=== PATIENT | male | born 1945 | race Caucasian/White ===

== ENCOUNTER 2019-05-28 00:04 | Emergency (ER) | payer MEDICARE ==
--- NOTE | 2019-05-28 00:13 | ERPHSYRPT ---
- History of Present Illness Time Seen by Provider: 05/28/19 00:05 Source: patient Exam Limitations: no limitations Physician History: Patient has been having shortness of breath for the past four days. Patient has not been seen or evaluated prior to coming into the emergency department. Patient states his symptoms are worse with him laying down immediately. Timing/Duration: day(s) (4) Activities at Onset: rest, sleep Severity of Dyspnea-Max: moderate Severity of Dyspnea-Current: none Possible Cause: occasional episodes Modifying Factors: Worsens With: lying down Associated Symptoms: intermittent, cough, No chest pain/discomfort, No edema, No fever, No insomnia, No loss of appetite, No lightheadedness, No wheezing, No weakness, No ankle swelling, No chills, No hemoptysis, No calf pain, No dizziness, No heaviness, No heart racing, No lightheadedness, No leg swelling, No muscle spasms feet, No muscle spasms hands, No painful breathing, No productive cough, No sweating, No tightness, No tingling face, No tingling hands International travel in last 2 weeks: No Allergies/Adverse Reactions: gemfibrozil Allergy (Mild, Verified 05/28/19 00:28) Home Medications: Amiodarone HCl 200 mg PO DAILY 05/28/19 [History] Aspirin 81 mg PO DAILY 05/28/19 [History] Atorvastatin Calcium 40 mg PO DAILY 05/28/19 [History] Furosemide 40 mg PO DAILY 05/28/19 [History] Sacubitril/Valsartan [Entresto 24 mg-26 mg Tablet] 1 tablet PO DAILY 05/28/19 [ History] Warfarin Sodium 5 mg [Coumadin 5 MG] 5 mg PO DAILY 05/28/19 [History] - Review of Systems Constitutional: No Fever, No Chills Eyes: No Eye Pain, No Vision Changes Ears, Nose, & Throat: No Ear Pain, No Ear Discharge, No Nose Congestion, No Nose Discharge, No Throat Pain, No Painful Swallowing Respiratory: Cough, Dyspnea Cardiac: PND, No Chest Pain, No Edema, No Syncope Abdominal/Gastrointestinal: No Abdominal Pain, No Nausea, No Vomiting, No Diarrhea, No Hematemesis, No Hematochezia, No Melena Genitourinary Symptoms: No Dysuria, No Hematuria, No Flank Pain Musculoskeletal: No Back Pain, No Neck Pain, No Myalgias Skin: No Rash Neurological: No Dizziness, No Focal Weakness, No Headache, No Sensory Changes Psychological: No Anxiety Endocrine: No Excessive Sweating Hematologic/Lymphatic: No Easy Bleeding, No Easy Bruising All Other Systems: Reviewed and Negative - Past Medical History Pertinent Past Medical History: Yes Cardiac History: Coronary Artery Disease, High Cholesterol, Myocardial Infarction ([place]) Endocrine Medical History: Diabetes Type II History: Renal Disease (chronic kidney disease since his [place] one year ago) - Past Surgical History Past Surgical History: Yes Cardiac: Internal Defibrillator, Pacemaker Other Surgical History: Tonsillectomy - Social History Smoking Status: Never smoker Alcohol Use: None Drug Use: none - Nursing Vital Signs Nursing Vital Signs: Initial Vital Signs Pulse Rate 60 05/28/19 00:05 Respiratory Rate 23 05/28/19 00:05 Blood Pressure 115/72 05/28/19 00:05 O2 Sat by Pulse Oximetry 99 05/28/19 00:05 - Physical Exam General Appearance: no apparent distress, alert Eye Exam: PERRL/EOMI, eyes nml inspection, No scleral icterus, No pale conjunctivae Ears, Nose, Throat Exam: hearing grossly normal, normal ENT inspection, normal pharynx Neck Exam: normal inspection, non-tender, supple, No Brudzinski, No meningismus , No lymphadenopathy (R), No lymphadenopathy (L) Respiratory Exam: normal breath sounds, lungs clear, airway intact, No chest tenderness, No respiratory distress, No diminished breath sounds, No accessory muscle use, No crackles/rales, No rhonchi, No wheezing, No stridor Cardiovascular/Chest Exam: normal heart sounds, regular rate/rhythm, murmur, normal peripheral pulses, No JVD Abdominal/Gastrointestinal Exam: soft, normal bowel sounds, No tenderness, No distention, No mass, No guarding, No rebound Extremity Exam: non-tender, normal range of motion, normal inspection, no calf tenderness, no pedal edema, No calf tenderness, No addie's sign Neurologic Exam: alert, oriented x 3, cooperative, industrial hygenist II-XII nml as tested, normal mood/affect, sensation nml, No motor deficits Skin Exam: normal color, warm, No dry, No jaundice, No cyanosis SpO2 Interpretation: normal O2 Delivery: Room Air - Course Nursing assessment & vital signs reviewed: Yes EKG Interpreted by Me: RATE (60), Other (Atiral and Ventricular Paced Rhythm; negative previous EKG for comparison) - Radiology Exams Chest X-ray Interpretation: Interpreted by me, Reviewed by me, No Fracture, No Pneumonia, No Infiltrates, Other (cardiomegaly, pacemaker/defibrillator, hiatal hernia) Ordered Tests: Active Orders 24 hr Category Date Time Status Research Instrumentation Technician STAT Care 05/28/19 00:06 Active EKG-ER Only STAT Care 05/28/19 00:05 Active IV Insertion STAT Care 05/28/19 00:05 Active CHEST 1 VIEW (PORTABLE) Stat Exams 05/28/19 00:06 Taken BLOOD CULTURE Stat Lab 05/28/19 00:55 Received CBC W DIFF Stat Lab 05/28/19 00:56 Completed CMP Stat Lab 05/28/19 00:56 Completed Lactic Acid Stat Lab 05/28/19 00:30 Completed MAGNESIUM Stat Lab 05/28/19 00:56 Completed NT PRO BNP Stat Lab 05/28/19 00:56 Completed PROTIME WITH INR Stat Lab 05/28/19 00:56 Completed PTT Stat Lab 05/28/19 00:56 Completed TROPONIN Q3H Lab 05/28/19 00:56 Completed TROPONIN Q3H Lab 05/28/19 03:15 Ordered TROPONIN Q3H Lab 05/28/19 06:15 Ordered TROPONIN Q3H Lab 05/28/19 09:15 Ordered TROPONIN Q3H Lab 05/28/19 12:15 Ordered UA W/RFX UR CULTURE Stat Lab 05/28/19 01:32 Completed VENOUS BLOOD GAS Stat Lab 05/28/19 00:30 Completed Peak Expiratory Flow Rate ONCE RT 05/28/19 03:06 Active Respiratory Therapy Assessment DAILY RT 05/28/19 03:06 Active Medication Summary Discontinued Medications Generic Name Dose Route Start Last Admin Trade Name Freq PRN Reason Stop Dose Admin Albuterol/Ipratropium 3 ml 05/28/19 02:37 05/28/19 03:02 Duoneb 0.5-3 Mg/3 Ml Neb IH 05/28/19 02:38 3 ml STAT ONE Administration Albuterol/Ipratropium Confirm 05/28/19 03:02 Duoneb 0.5-3 Mg/3 Ml Neb Administered 05/28/19 03:03 Dose 3 ml IH .STK-MED ONE Lab/Rad Data: Laboratory Result Diagrams 05/28/19 00:56 05/28/19 00:56 Laboratory Results 05/28/19 05/28/19 05/28/19 Range/Units 01:32 00:56 00:56 WBC (4.0-10.5) K/mm3 RBC (4.1-5.6) M/mm3 Hgb (12.5-18.0) gm/dl Hct (42-50) % MCV (78-100) fl MCH (26-32) pg MCHC (32-36) g/dl RDW (11.5-14.0) % Plt Count (150-450) K/mm3 MPV (6-9.5) fl Gran % (36.0-66.0) % Eos # (Auto) (0-0.5) Absolute Lymphs (auto) (1.0-4.6) Absolute Monos (auto) (0.0-1.3) Lymphocytes % (24.0-44.0) % Monocytes % (0.0-12.0) % Eosinophils % (0.00-5.0) % Basophils % (0.0-0.4) % Absolute Granulocytes (1.4-6.9) Basophils # (0-0.4) PT 27.1 H (8.83-12.87) SECONDS INR 2.36 (0.8-3.0) APTT 40.6 H (24.1-36.1) SECONDS pO2/FiO2 Ratio % VBG pH (7.32-7.42) VBG pCO2 at Pat Temp (42-55) mm/Hg VBG pO2 at Pat Temp (25-40) mm/Hg VBG HCO3 (22-28) meq/L VBG O2 Sat (Gema) (95-100) VBG Base Excess (-2.0-2.0) VBG Hemoglobin VBG Carboxyhemoglobin (0.0-6.9) % T HGB POC Potassium (3.5-5.1) Sodium (137-145) mmol/L Potassium (3.5-5.1) mmol/L Chloride (98-107) mmol/L Carbon Dioxide (22-30) mmol/L Anion Gap (5-15) MEQ/L BUN (9-20) mg/dL Creatinine (0.66-1.25) mg/dL Estimated GFR ML/MIN Glucose (74-106) mg/dL Lactic Acid (0.4-2.0) Calcium (8.4-10.2) mg/dL Magnesium (1.6-2.3) mg/dL Total Bilirubin (0.2-1.3) mg/dL AST (17-59) U/L ALT (0-50) U/L Alkaline Phosphatase (38-126) U/L Troponin I 0.025 (0.000-0.034) ng/mL NT-Pro-B Natriuret Pep (0-1800) pg/mL Serum Total Protein (6.3-8.2) g/dL Albumin (3.5-5.0) g/dL Urine Color YELLOW (YELLOW) Urine Appearance CLEAR (CLEAR) Urine pH 5.0 (5-6) Ur Specific Cropsey 1.010 (1.005-1.025) Urine Protein NEGATIVE (Negative) Urine Ketones NEGATIVE (NEGATIVE) Urine Blood NEGATIVE (0-5) Severino/ul Urine Nitrite NEGATIVE (NEGATIVE) Urine Bilirubin NEGATIVE (NEGATIVE) Urine Urobilinogen NEGATIVE (0-1) mg/dL Ur Leukocyte Esterase NEGATIVE (NEGATIVE) Urine WBC (Auto) NONE (0-5) /HPF Urine RBC (Auto) NONE (0-2) /HPF U Epithel Cells (Auto) NONE (FEW) /HPF Urine Bacteria (Auto) NONE (NEGATIVE) /HPF Urine Culture Reflexed NO (NO) Urine Glucose NEGATIVE (NEGATIVE) mg/dL Influenza Type A Ag (NEGATIVE) Influenza Type B Ag (NEGATIVE) RSV (PCR) (Negative) 05/28/19 05/28/19 05/28/19 Range/Units 00:56 00:56 00:55 WBC 6.1 (4.0-10.5) K/mm3 RBC 4.01 L (4.1-5.6) M/mm3 Hgb 11.9 L (12.5-18.0) gm/dl Hct 36.0 L (42-50) % MCV 89.8 (78-100) fl MCH 29.7 (26-32) pg MCHC 33.1 (32-36) g/dl RDW 14.5 H (11.5-14.0) % Plt Count 199 (150-450) K/mm3 MPV 10.2 H (6-9.5) fl Gran % 57.5 (36.0-66.0) % Eos # (Auto) 0.26 (0-0.5) Absolute Lymphs (auto) 1.63 (1.0-4.6) Absolute Monos (auto) 0.67 (0.0-1.3) Lymphocytes % 26.7 (24.0-44.0) % Monocytes % 11.0 (0.0-12.0) % Eosinophils % 4.3 (0.00-5.0) % Basophils % 0.5 (0.0-0.4) % Absolute Granulocytes 3.51 (1.4-6.9) Basophils # 0.03 (0-0.4) PT (8.83-12.87) SECONDS INR (0.8-3.0) APTT (24.1-36.1) SECONDS pO2/FiO2 Ratio % VBG pH (7.32-7.42) VBG pCO2 at Pat Temp (42-55) mm/Hg VBG pO2 at Pat Temp (25-40) mm/Hg VBG HCO3 (22-28) meq/L VBG O2 Sat (Gema) (95-100) VBG Base Excess (-2.0-2.0) VBG Hemoglobin VBG Carboxyhemoglobin (0.0-6.9) % T HGB POC Potassium (3.5-5.1) Sodium 139 (137-145) mmol/L Potassium 4.3 (3.5-5.1) mmol/L Chloride 105 (98-107) mmol/L Carbon Dioxide 24 (22-30) mmol/L Anion Gap 14.0 (5-15) MEQ/L BUN 40 H (9-20) mg/dL Creatinine 1.99 H (0.66-1.25) mg/dL Estimated GFR 35.0 ML/MIN Glucose 163 H (74-106) mg/dL Lactic Acid (0.4-2.0) Calcium 9.1 (8.4-10.2) mg/dL Magnesium 2.1 (1.6-2.3) mg/dL Total Bilirubin 0.60 (0.2-1.3) mg/dL AST 42 (17-59) U/L ALT 34 (0-50) U/L Alkaline Phosphatase 158 H (38-126) U/L Troponin I (0.000-0.034) ng/mL NT-Pro-B Natriuret Pep 52287 H (0-1800) pg/mL Serum Total Protein 7.5 (6.3-8.2) g/dL Albumin 3.9 (3.5-5.0) g/dL Urine Color (YELLOW) Urine Appearance (CLEAR) Urine pH (5-6) Ur Specific Cropsey (1.005-1.025) Urine Protein (Negative) Urine Ketones (NEGATIVE) Urine Blood (0-5) Severino/ul Urine Nitrite (NEGATIVE) Urine Bilirubin (NEGATIVE) Urine Urobilinogen (0-1) mg/dL Ur Leukocyte Esterase (NEGATIVE) Urine WBC (Auto) (0-5) /HPF Urine RBC (Auto) (0-2) /HPF U Epithel Cells (Auto) (FEW) /HPF Urine Bacteria (Auto) (NEGATIVE) /HPF Urine Culture Reflexed (NO) Urine Glucose (NEGATIVE) mg/dL Influenza Type A Ag NEGATIVE (NEGATIVE) Influenza Type B Ag NEGATIVE (NEGATIVE) RSV (PCR) NEGATIVE (Negative) 05/28/19 Range/Units 00:30 WBC (4.0-10.5) K/mm3 RBC (4.1-5.6) M/mm3 Hgb (12.5-18.0) gm/dl Hct (42-50) % MCV (78-100) fl MCH (26-32) pg MCHC (32-36) g/dl RDW (11.5-14.0) % Plt Count (150-450) K/mm3 MPV (6-9.5) fl Gran % (36.0-66.0) % Eos # (Auto) (0-0.5) Absolute Lymphs (auto) (1.0-4.6) Absolute Monos (auto) (0.0-1.3) Lymphocytes % (24.0-44.0) % Monocytes % (0.0-12.0) % Eosinophils % (0.00-5.0) % Basophils % (0.0-0.4) % Absolute Granulocytes (1.4-6.9) Basophils # (0-0.4) PT (8.83-12.87) SECONDS INR (0.8-3.0) APTT (24.1-36.1) SECONDS pO2/FiO2 Ratio 21.0 % VBG pH 7.43 H (7.32-7.42) VBG pCO2 at Pat Temp 35 L (42-55) mm/Hg VBG pO2 at Pat Temp 51 H (25-40) mm/Hg VBG HCO3 23.2 (22-28) meq/L VBG O2 Sat (Gema) 91.0 L (95-100) VBG Base Excess -0.7 (-2.0-2.0) VBG Hemoglobin 12.2 VBG Carboxyhemoglobin 2.4 (0.0-6.9) % T HGB POC Potassium 4.2 (3.5-5.1) Sodium (137-145) mmol/L Potassium (3.5-5.1) mmol/L Chloride (98-107) mmol/L Carbon Dioxide (22-30) mmol/L Anion Gap (5-15) MEQ/L BUN (9-20) mg/dL Creatinine (0.66-1.25) mg/dL Estimated GFR ML/MIN Glucose (74-106) mg/dL Lactic Acid 1.1 (0.4-2.0) Calcium (8.4-10.2) mg/dL Magnesium (1.6-2.3) mg/dL Total Bilirubin (0.2-1.3) mg/dL AST (17-59) U/L ALT (0-50) U/L Alkaline Phosphatase (38-126) U/L Troponin I (0.000-0.034) ng/mL NT-Pro-B Natriuret Pep (0-1800) pg/mL Serum Total Protein (6.3-8.2) g/dL Albumin (3.5-5.0) g/dL Urine Color (YELLOW) Urine Appearance (CLEAR) Urine pH (5-6) Ur Specific Cropsey (1.005-1.025) Urine Protein (Negative) Urine Ketones (NEGATIVE) Urine Blood (0-5) Severino/ul Urine Nitrite (NEGATIVE) Urine Bilirubin (NEGATIVE) Urine Urobilinogen (0-1) mg/dL Ur Leukocyte Esterase (NEGATIVE) Urine WBC (Auto) (0-5) /HPF Urine RBC (Auto) (0-2) /HPF U Epithel Cells (Auto) (FEW) /HPF Urine Bacteria (Auto) (NEGATIVE) /HPF Urine Culture Reflexed (NO) Urine Glucose (NEGATIVE) mg/dL Influenza Type A Ag (NEGATIVE) Influenza Type B Ag (NEGATIVE) RSV (PCR) (Negative) - Progress Progress: re-examined Air Movement: good Progress Note: 05/28/19 02:40 Good airflow throughout with some end expiratory wheeze in the lower lung nazario that improves with deep breathing 05/28/19 03:11 CTA to all lung nazario with resolution of any wheezing after one DuoNeb treatment. Patient does not require any further inpatient evaluation or monitoring as the renal failure is chronic without any new changes, no signs of hear failure or pneumonia on chest x-ray, adequate pacemaker function seen throughout his time in the emergency department. Patient has had a recent 2D echo in 2019 and can follow-up as an outpatient in the am of 05/28/2019 with his physician to determine the need for further evaluation and testing. Blood Culture(s) Obtained: No Antibiotics given: No Counseled pt/family regarding: lab results, diagnosis, need for follow-up, rad results - Departure Departure Disposition: Home Clinical Impression: Chronic kidney disease, stage 3, Wheezing on expiration Dyspnea Qualifiers: Dyspnea type: unspecified Qualified Code(s): R06.00 - Dyspnea, unspecified Condition: Good Critical Care Time: No Referrals: TANISHA CONTRERAS MD [Primary Care Provider] - 05/28/19 Instructions: Shortness of Breath (Dyspnea) (DC), Chronic Kidney Disease (DC), Wheezing Additional Instructions: Discharge/Care Plan RHODA BOWDEN was seen on 05/28/19 in the Emergency Room. The patient was counseled regarding Diagnosis,Lab results, Imaging studies, need for follow up and when to return to the Emergency Room. Prescriptions given: None Discharge Note I have spoken with the patient. I have explained the patient's condition, diagnosis and treatment plan based on the information available to me at this time. I have answered the patient's questions and addressed any concerns. The patient has a good understanding of the patient's diagnosis, condition and treatment plan as can be expected at this point. The vital signs have been stable. The patient's condition is stable and appropriate for discharge from the emergency department. The patient will pursue further outpatient evaluation with the primary care physician or other designated or consulting physician as outlined in the discharge instructions. The patient is agreeable to this plan of care and follow -up instructions have been explained in detail. The patient has received these instruction. The patient is aware that any significant change in condition or worsening of symptoms should prompt an immediate return to this or the closest emergency department or call 911.
[2019-05-28 00:36] LABS: Lactic Acid 1.1 (0.4-2.0); VBG BASE EXCESS -0.7 (-2.0-2.0); VBG CARBOXYHEMOGLOBIN 2.4 % T HGB (0.0-6.9); VBG HCO3- 23.2 meq/L (22-28); VBG HEMOGLOBIN 12.2; VBG POTASSIUM 4.2 (3.5-5.1); VBG pH 7.43 (7.32-7.42)
[2019-05-28 00:55] LABS: Absolute Neutrophil Ct (ANC) 3.51 (1.4-6.9); BASOPHIL % 0.5 % (0.0-0.4); Basophil (Absolute #) 0.03 (0-0.4); Eosinophil % 4.3 % (0.00-5.0); Eosinophil (Absolute #) 0.26 (0-0.5); Hemoglobin 11.9 gm/dl (12.5-18.0); Lymphocyte (Absolute #) 1.63 (1.0-4.6); Lymphocytes % 26.7 % (24.0-44.0); Mean Cell Volume 89.8 fl (78-100); Mean Corpuscular Hemoglobin 29.7 pg (26-32); Mean Corpuscular Hgb Concent. 33.1 g/dl (32-36); Mean Platelet Volume 10.2 fl (6-9.5); Monocyte (Absolute #) 0.67 (0.0-1.3); Neutrophil % 57.5 % (36.0-66.0); Platelet Count 199 K/mm3 (150-450); Red Blood Count 4.01 M/mm3 (4.1-5.6); Red Cell Distribution Width 14.5 % (11.5-14.0); White Blood Count 6.1 K/mm3 (4.0-10.5)
[2019-05-28 01:09] LABS: INR 2.36 (0.8-3.0); PROTIME 27.1 SECONDS (8.83-12.87)
[2019-05-28 01:12] LABS: PTT 40.6 SECONDS (24.1-36.1)
[2019-05-28 01:23] LABS: ALBUMIN 3.9 g/dL (3.5-5.0); BILIRUBIN,TOTAL 0.6 mg/dL (0.2-1.3); Calcium 9.1 mg/dL (8.4-10.2); Creatinine 1 1.99 mg/dL (0.66-1.25); MAGNESIUM 2.1 mg/dL (1.6-2.3); Potassium 4.3 mmol/L (3.5-5.1); Total Protein 7.5 g/dL (6.3-8.2)
[2019-05-28 01:35] LABS: Appearance CLEAR (CLEAR); Bilirubin NEGATIVE (NEGATIVE); Blood NEGATIVE Ery/ul (0-5); Glucose NEGATIVE (NEGATIVE); Ketones NEGATIVE (NEGATIVE); Leukocyte Esterase NEGATIVE (NEGATIVE); Nitrite NEGATIVE (NEGATIVE); Protein,Urine Dip NEGATIVE (Negative); Urobilinogen NEGATIVE mg/dL (0-1)
[2019-05-28 02:00] LABS: INFLUENZA A NEGATIVE (NEGATIVE); INFLUENZA B NEGATIVE (NEGATIVE); RESPIRATORY SYNCTIAL VIRUS NEGATIVE (Negative)
[2019-05-28] MEDS ORDERED: DUONEB 0.5-3 MG/3 ml Neb IH ONE ×2 (02:37→03:02)
[2019-05-28 03:47] VITALS: O2SAT 98
[2019-05-28 03:53] VITALS: BP 123/77; PULSE 80
--- NOTE | 2019-05-28 15:35 | XRAY ---
Exam: AP upright portable chest film from 05/28/2019. Comparison: None. Indication: Shortness of breath. Findings: The transverse heart size appears mildly enlarged. There is mild tortuosity of the descending thoracic aorta. Lung volumes are slightly decreased. Left-sided cardiac pacemaker/AICD is seen with [address], one lead tip in the projection of the right atrium, another lead tip in the projection of the apex of the right ventricle, and a third lead within the projection of the coronary sinus. The daniel and mediastinal structures appear unremarkable. Minimal curvilinear pleural reaction is seen within the minor fissure on the right. No air space infiltrates, central vascular congestion, pneumothorax, or pleural fluid is seen. Mild degenerative changes are seen within the thoracic spine. Impression: 1. Mild cardiomegaly without evidence of acute heart failure or pulmonary edema. 2. No infiltrates to suggest focal pneumonia or other acute cardiopulmonary disease is seen. Lung volumes are mildly decreased. 3. Left-sided cardiac pacemaker/AICD in place, as discussed above.
== END 2019-05-28 03:45 | disposition home or self-care (01) ==
LOC: ED 00:04
DX: R06.00 Dyspnea, unspecified (principal); N18.3 Chronic kidney disease, stage 3 (moderate); R06.2 Wheezing; R05 Cough; Z79.899 Other long term (current) drug therapy; I25.10 Atherosclerotic heart disease of native coronary artery without angina pectoris; E78.00 Pure hypercholesterolemia, unspecified; E11.9 Type 2 diabetes mellitus without complications
CPT/HCPCS: 36000; 36415; 71045; 80053; 81001; 82805; 83605; 83735; 83880; 84484; 85025; 85610; 85730; 87040; 87631; 93005; 93041; 94150; 94640; 99284; A9270-GY

== ENCOUNTER 2020-10-21 09:46 | Emergency (ER) | payer MEDICARE ==
--- NOTE | 2020-10-21 10:44 | ERPHSYRPT ---
- History of Present Illness Time Seen by Provider: 10/21/20 10:00 Source: patient Exam Limitations: no limitations Patient Subjective Stated Complaint: pt here for abnormal labs , he states hes kidney functions are elevated, Triage Nursing Assessment: pt alert, resp easy, face mask in place, skin w/d/p. 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 Patient states that he had blood work done on Monday. Patient states his creatinine was 4. Patient is known to have renal sufficiency. Patient otherwise asymptomatic. No back pain. No chest pain. Urine output is within normal limits. Patient voices no other complaints concerns at this time. Timing/Duration: today Severity: mild (Patient is asymptomatic.) Modifying Factors: Improves With: nothing Associated Symptoms: denies symptoms Allergies/Adverse Reactions: gemfibrozil Allergy (Mild, Verified 10/21/20 10:10) Home Medications: Amiodarone HCl 200 mg PO BID 05/28/19 [History] Aspirin 81 mg PO DAILY 05/28/19 [History] Atorvastatin Calcium 40 mg PO HS 05/28/19 [History] Sacubitril/Valsartan [Entresto 24 mg-26 mg Tablet] 1 tablet PO BID 05/28/19 [History] Carvedilol [Coreg] 6.25 mg PO TID 09/24/20 [History] Docusate Sodium 100 mg PO DAILY 09/24/20 [History] Furosemide [Lasix] 20 mg PO BID 09/24/20 [History] Linagliptin [Tradjenta] 5 mg PO DAILY 09/24/20 [History] Hx Tetanus, Diphtheria Vaccination/Date Given: Yes Hx Influenza Vaccination/Date Given: Yes Hx Pneumococcal Vaccination/Date Given: Yes Immunizations Up to Date: Yes Travel Risk - International Travel Have you traveled outside of the country in past 3 weeks: No - Coronavirus Screening Are you exhibiting any of the following symptoms?: No Close contact with a COVID-19 positive Pt in past 14-21 Days: No - Vaccine Status Have you recieved a Covid-19 vaccination: Yes Presentation Specialist: Moderna - Vaccination Dates Date of 2cond Vaccination (if applicable): jul - Review of Systems Constitutional: No Symptoms, No Fever, No Chills Eyes: No Symptoms Ears, Nose, & Throat: No Symptoms Respiratory: No Symptoms, No Cough, No Dyspnea Cardiac: No Symptoms, No Chest Pain, No Edema, No Syncope Abdominal/Gastrointestinal: No Symptoms, No Abdominal Pain, No Nausea, No Vomiting, No Diarrhea Genitourinary Symptoms: No Symptoms, No Dysuria Musculoskeletal: No Symptoms, No Back Pain, No Neck Pain Skin: No Symptoms, No Rash Neurological: No Symptoms, No Dizziness, No Focal Weakness, No Sensory Changes Psychological: No Symptoms Endocrine: No Symptoms Hematologic/Lymphatic: No Symptoms Immunological/Allergic: No Symptoms All Other Systems: Reviewed and Negative - Past Medical History Pertinent Past Medical History: Yes Cardiac History: Coronary Artery Disease, High Cholesterol, Myocardial Infarction ([place]) Endocrine Medical History: Diabetes Type II History: Renal Disease - Past Surgical History Past Surgical History: Yes Cardiac: Internal Defibrillator, Pacemaker Other Surgical History: Tonsillectomy - Social History Smoking Status: Never smoker Exposure to second hand smoke: No Alcohol Use: None Drug Use: none Patient Lives Alone: No - Nursing Vital Signs Nursing Vital Signs: Initial Vital Signs Temperature 97.2 F 10/21/20 09:52 Pulse Rate 76 10/21/20 09:52 Respiratory Rate 18 10/21/20 09:52 Blood Pressure 118/75 10/21/20 09:52 O2 Sat by Pulse Oximetry 75 L 10/21/20 09:52 Pain Scale Pain Intensity 0 - Physical Exam General Appearance: no apparent distress, alert Eye Exam: PERRL/EOMI, eyes nml inspection Ears, Nose, Throat Exam: normal ENT inspection, TMs normal, pharynx normal, moist mucous membranes Neck Exam: normal inspection, non-tender, supple, full range of motion Respiratory Exam: normal breath sounds, lungs clear, No respiratory distress Cardiovascular Exam: regular rate/rhythm, normal heart sounds, normal peripheral pulses Gastrointestinal/Abdomen Exam: soft, normal bowel sounds, No tenderness, No mass Back Exam: normal inspection, normal range of motion, No CVA tenderness, No vertebral tenderness Extremity Exam: normal inspection, normal range of motion, pelvis stable Neurologic Exam: alert, oriented x 3, cooperative, normal mood/affect, nml cerebellar function, nml station & gait, sensation nml, No motor deficits Skin Exam: normal color, warm, dry, No rash Lymphatic Exam: No adenopathy SpO2 Interpretation: normal SpO2: 95 O2 Delivery: Room Air - Course Nursing assessment & vital signs reviewed: Yes EKG Interpreted by Me: RATE ([id number]), Sinus Rhythm, NORMAL AXIS, NORMAL INTERVALS Ordered Tests: Active Orders 24 hr Category Date Time Status Scrub Tech STAT Care 10/21/20 10:10 Active EKG-ER Only STAT Care 10/21/20 10:09 Active IV Insertion STAT Care 10/21/20 10:09 Active Pulse Oximetry (ED) STAT Care 10/21/20 10:09 Active CBC W DIFF Stat Lab 10/21/20 10:09 Completed CMP Stat Lab 10/21/20 11:30 Completed MAGNESIUM Stat Lab 10/21/20 11:30 Completed Urine Triage Profile Stat Lab 10/21/20 10:46 Completed Lab/Rad Data: Laboratory Result Diagrams 10/21/20 10:09 10/21/20 11:30 Laboratory Results 10/21/20 10/21/20 10/21/20 Range/Units 11:30 10:46 10:09 WBC 11.8 H (4.0-10.5) K/mm3 RBC 3.88 L (4.1-5.6) M/mm3 Hgb 11.6 L (12.5-18.0) gm/dl Hct 35.1 L (42-50) % MCV 90.5 (78-100) fl MCH 29.9 (26-32) pg MCHC 33.0 (32-36) g/dl RDW 13.4 (11.5-14.0) % Plt Count 305 (150-450) K/mm3 MPV 10.4 (7.5-11.0) fl Gran % 68.1 H (36.0-66.0) % Eos # (Auto) 1.25 H (0-0.5) Absolute Lymphs (auto) 1.69 (1.0-4.6) Absolute Monos (auto) 0.78 (0.0-1.3) Lymphocytes % 14.3 L (24.0-44.0) % Monocytes % 6.6 (0.0-12.0) % Eosinophils % 10.6 H (0.00-5.0) % Basophils % 0.4 (0.0-0.4) % Absolute Granulocytes 8.05 H (1.4-6.9) Basophils # 0.05 (0-0.4) Sodium 137 (137-145) mmol/L Potassium 4.2 (3.5-5.1) mmol/L Chloride 104 (98-107) mmol/L Carbon Dioxide 21 L (22-30) mmol/L Anion Gap 15.9 H (5-15) MEQ/L BUN 65 H (9-20) mg/dL Creatinine 3.90 H (0.66-1.25) mg/dL Estimated GFR 16.1 ML/MIN Glucose 162 H (74-106) mg/dL Calcium 9.3 (8.4-10.2) mg/dL Magnesium 2.1 (1.6-2.3) mg/dL Total Bilirubin 0.60 (0.2-1.3) mg/dL AST 24 (17-59) U/L ALT 22 (0-50) U/L Alkaline Phosphatase 146 H (38-126) U/L Serum Total Protein 7.4 (6.3-8.2) g/dL Albumin 3.8 (3.5-5.0) g/dL Urine Opiates Level NEGATIVE (NEGATIVE) Ur Methadone NEGATIVE (NEGATIVE) Urine Barbiturates NEGATIVE (NEGATIVE) Ur Phencyclidine (PCP) NEGATIVE (NEGATIVE) Urine Amphetamine NEGATIVE (NEGATIVE) U Benzodiazepine Level NEGATIVE (NEGATIVE) Urine Cocaine NEGATIVE (NEGATIVE) Urine Marijuana (THC) NEGATIVE (NEGATIVE) - Progress Progress: unchanged, improved Progress Note: Patient reassessed. He remains asymptomatic. BUN 65. Creatinine 3.9. Case discussed with Dr. 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 Dr. Huerta recommends stopping the Entresto. This may be contributing to his diminished renal function. No other recommendations made. Patient to call Dr. Huerta's office today for follow-up appointment. Plan of care discussed with patient. He voices no other complaints at this time. Patient agrees to follow-up with Dr. Huerta within 48 hours for reevaluation. 10/21/20 12:26 Counseled pt/family regarding: lab results, diagnosis, need for follow-up - Departure Departure Disposition: Home Clinical Impression: Renal insufficiency Condition: Stable Critical Care Time: No Referrals: TANISHA CONTRERAS MD [Primary Care Provider] - Additional Instructions: Discharge/Care Plan RHODA BOWDEN was seen on 10/21/20 in the Emergency Room. The patient was counseled regarding Diagnosis,Lab results, Imaging studies, need for follow up and when to return to the Emergency Room. Prescriptions given: Discharge Note I have spoken with the patient and/or caregivers. I have explained the patient's condition, diagnosis and treatment plan based on the information available to me at this time. I have answered the patient's and/or caregiver's questions and addressed any concerns. The patient and/or caregivers have as good understanding of the patient's diagnosis, condition and treatment plan as can be expected at this point. The vital signs have been stable. The patient's condition is stable and appropriate for discharge from the emergency department. The patient will pursue further outpatient evaluation with the primary care physician or other designated or consulting physician as outlined in the discharge instructions. The patient and/or caregivers are agreeable to this plan of care and follow-up instructions have been explained in detail. The patient and/or caregivers have received these instruction. The patient/and or caregivers are aware that any significant change in condition or worsening of symptoms should prompt an immediate return to this or the closest emergency department or call 911.
[2020-10-21 11:36] LABS: Absolute Neutrophil Ct (ANC) 8.05 (1.4-6.9); BASOPHIL % 0.4 % (0.0-0.4); Basophil (Absolute #) 0.05 (0-0.4); Eosinophil % 10.6 % (0.00-5.0); Eosinophil (Absolute #) 1.25 (0-0.5); Hematocrit 35.1 % (42-50); Hemoglobin 11.6 gm/dl (12.5-18.0); Lymphocyte (Absolute #) 1.69 (1.0-4.6); Lymphocytes % 14.3 % (24.0-44.0); Mean Cell Volume 90.5 fl (78-100); Mean Corpuscular Hemoglobin 29.9 pg (26-32); Mean Platelet Volume 10.4 fl (7.5-11.0); Monocyte (Absolute #) 0.78 (0.0-1.3); Monocytes % 6.6 % (0.0-12.0); Neutrophil % 68.1 % (36.0-66.0); Platelet Count 305 K/mm3 (150-450); Red Blood Count 3.88 M/mm3 (4.1-5.6); Red Cell Distribution Width 13.4 % (11.5-14.0); White Blood Count 11.8 K/mm3 (4.0-10.5)
[2020-10-21 11:49] LABS: ALBUMIN 3.8 g/dL (3.5-5.0); ANION GAP 15.9 MEQ/L (5-15); BILIRUBIN,TOTAL 0.6 mg/dL (0.2-1.3); Calcium 9.3 mg/dL (8.4-10.2); Creatinine 1 3.9 mg/dL (0.66-1.25); EST GLOMERULAR FILTRATION RATE 16.1 ML/MIN; MAGNESIUM 2.1 mg/dL (1.6-2.3); Potassium 4.2 mmol/L (3.5-5.1); Total Protein 7.4 g/dL (6.3-8.2)
[2020-10-21 11:54] LABS: Amphetamine,Urine NEGATIVE (NEGATIVE); Barbiturate,Urine NEGATIVE (NEGATIVE); Benzodiazepine,Urine NEGATIVE (NEGATIVE); Cocaine,Urine NEGATIVE (NEGATIVE); Methadone,Urine NEGATIVE (NEGATIVE); Opiate,Urine NEGATIVE (NEGATIVE); PCP,Urine NEGATIVE (NEGATIVE); THC,Urine NEGATIVE (NEGATIVE)
[2020-10-21 12:54] VITALS: BP 116/61; PULSE 60; O2SAT 97
== END 2020-10-21 13:00 | disposition home or self-care (01) ==
LOC: ED 09:46
DX: N28.9 Disorder of kidney and ureter, unspecified (principal); Z79.899 Other long term (current) drug therapy; I25.10 Atherosclerotic heart disease of native coronary artery without angina pectoris; E11.9 Type 2 diabetes mellitus without complications; E78.00 Pure hypercholesterolemia, unspecified
CPT/HCPCS: 36000; 36415; 80053; 80307; 83735; 85025; 93005; 93041; 94760; 99284

== ENCOUNTER 2020-12-11 13:18 | Observation (INO) | payer MEDICARE ==
--- NOTE | 2020-12-11 14:29 | XRAY ---
Exam: 3 views of the left ankle from 12/11/2020. Comparison: None. Indication: 75-year-old male with pain; unable to bear weight; exam performed on cart. Findings: AP, oblique, and lateral radiographs of the left ankle were obtained. I see no acute fracture or dislocation. There is mild soft tissue prominence overlying the lateral malleolus. The left ankle mortise is adequately preserved and uniform. Mild hypertrophic spurring/degenerative change is seen at the inferior margin of the medial malleolus. Moderate atherosclerotic vascular calcification is seen within the distal left lower leg, ankle, and hindfoot. There is a mild plantar calcaneal spur. An os trigonum is seen posterior to the talus. The subtalar joint is not seen in optimal profile. Impression: 1. No acute fracture or dislocation of the left ankle is seen. 2. Moderate arteriosclerotic vascular calcification and a mild plantar left calcaneal spur are seen. I also note minimal spurring/degenerative change of the medial malleolus tip.
--- NOTE | 2020-12-11 14:33 | XRAY ---
Exam: 3 views of the right knee from 12/11/2020. Comparison: None. Indication: 75-year-old male with pain, unable to bear weight; exam performed on cart. Findings: AP, internal oblique, and crosstable lateral images of the right knee were obtained. I see no acute fracture, dislocation, or suprapatellar effusion. Moderate arteriosclerotic vascular calcification is seen posterior to the right knee. The femoral tibial joint appears adequately preserved. There is minimal marginal spurring at the medial and lateral margins of the proximal right tibia and the tibial eminences. The patellofemoral joint space appears unremarkable on the crosstable lateral view. There is a moderate-sized spur at the anterior-inferior margin of the right patella and a tiny spur at the inferior posterior margin of the right patella. No other focal bone lesion is seen. Impression: 1. No acute fracture, dislocation, or suprapatellar effusion of the right knee is seen. 2. Moderate arteriosclerotic vascular calcification is seen posterior to the right knee. 3. Minimal to moderate osteoarthritic spurring is seen. However, both the femoral tibial joint and patellofemoral joint of the right appear adequately preserved.
[2020-12-11 14:40] LABS: Absolute Neutrophil Ct (ANC) 10.39 (1.4-6.9); BASOPHIL % 0.2 % (0.0-0.4); Basophil (Absolute #) 0.02 (0-0.4); Eosinophil % 0.1 % (0.00-5.0); Eosinophil (Absolute #) 0.01 (0-0.5); Hematocrit 37.6 % (42-50); Lymphocyte (Absolute #) 1.07 (1.0-4.6); Lymphocytes % 8.7 % (24.0-44.0); Mean Cell Volume 89.1 fl (78-100); Mean Corpuscular Hemoglobin 28.4 pg (26-32); Mean Corpuscular Hgb Concent. 31.9 g/dl (32-36); Mean Platelet Volume 9.9 fl (7.5-11.0); Monocyte (Absolute #) 0.82 (0.0-1.3); Monocytes % 6.7 % (0.0-12.0); Neutrophil % 84.3 % (36.0-66.0); Platelet Count 330 K/mm3 (150-450); Red Blood Count 4.22 M/mm3 (4.1-5.6); Red Cell Distribution Width 13.8 % (11.5-14.0); White Blood Count 12.3 K/mm3 (4.0-10.5)
--- NOTE | 2020-12-11 14:49 | XRAY ---
Exam: 3 views of the left knee from 12/11/2020. Comparison: None. Indication: 75-year-old male with pain, unable to bear weight; images obtained on cart. Findings: AP, internal oblique, and crosstable lateral images of the left knee were obtained. I see no acute fracture or dislocation. I cannot exclude a minimal suprapatellar effusion on the crosstable lateral view. Moderate arteriosclerotic vascular calcification is seen posterior to the left knee. I note some mild marginal spurring along both the anterior and posterior margins of the left patella. The patellofemoral joint appears to be minimally narrowed on the lateral image. The femoral tibial joint space is well-preserved, although there is some minimal marginal osteophyte formation medially and at the level of the tibial eminences. Impression: 1. No acute left knee fracture or dislocation is seen. 2. There appears to be a minimal suprapatellar effusion of the left knee. 3. Minor degenerative changes of the left knee and moderate arteriosclerotic vascular calcification posterior to the left knee are seen.
--- NOTE | 2020-12-11 14:50 | XRAY ---
Exam: 3 views of the right ankle from 12/11/2020. Comparison: None. Indication: 75-year-old male with right ankle pain, unable to bear weight, exam performed on cart. Findings: AP, internal oblique, and lateral radiographs of the right ankle were obtained. I see no acute fracture or dislocation of the right ankle. The right ankle joint space is well-preserved and is uniform. Moderate hypertrophic spurring/degenerative change is seen at the inferior middle malleolar tip. There is also minimal spurring/degenerative change at the inferior margin of the right fibula. A small os trigonum is seen posterior to the right talus. Mild arteriosclerotic vascular calcification is seen within the distal right lower leg and plantar to the right calcaneus. There is a minimal plantar right calcaneal spur. The subtalar joint is not seen in optimal profile. Impression: 1. No acute right ankle fracture or dislocation is seen. 2. Mild degenerative changes are seen at the inferior margin of the medial malleolus, and to lesser extent, the distal inferior margin of the right fibula. However, the right ankle joint space is well-preserved and appears uniform. 3. Tiny plantar calcaneal spur and mild arteriosclerotic vascular calcification are seen.
[2020-12-11 14:59] LABS: PROTIME 85.8 SECONDS (9.4-12.5)
[2020-12-11 15:00] LABS: ALBUMIN 4.2 g/dL (3.5-5.0); ANION GAP 19.2 MEQ/L (5-15); BILIRUBIN,TOTAL 0.9 mg/dL (0.2-1.3); Calcium 8.7 mg/dL (8.4-10.2); Creatinine 1 2.82 mg/dL (0.66-1.25); EST GLOMERULAR FILTRATION RATE 23.3 ML/MIN; Potassium 3.6 mmol/L (3.5-5.1); Total Protein 8.2 g/dL (6.3-8.2)
[2020-12-11 15:02] LABS: INR 7.32 (0.8-3.0)
--- NOTE | 2020-12-11 15:44 | ERPHSYRPT ---
- History of Present Illness Time Seen by Provider: 12/11/20 13:30 Source: patient Exam Limitations: no limitations Patient Subjective Stated Complaint: pt here for pain to both ankles and knee worse last week end with no injury, he was to walk with walker now Triage Nursing Assessment: pt arrived per ambulance, pt has rodriguez wrap to left knee and knee splint to right knee, left ankle is swollen which pt states has been normal for him Physician History: Patient is a 75-year-old male who is a patient of Dr. Brown who suffers from some diabetes atrial fib is on chronic anticoagulation he also has recurrent episodes of joint pain from the 1970s to the present. He is reports that these flares ups of joint pain are not related to any injury. He has been told he has gout. This episode started a few days ago as a result his INR has elevated he complains of severe pain in the left knee and ankle as well as the right knee and ankle although the left is much worse. They are both all 4 hot to the touch there is swelling in both the left ankle and knee. He also has chronic renal disease and is followed by Dr. Meeks. Method of Injury: unknown Quality: throbbing Severity of Pain-Max: severe Severity of Pain-Current: severe Lower Extremities Pain: knee: bilateral, ankle: bilateral Modifying Factors: Improves With: movement Associated Symptoms: unable to bear weight Allergies/Adverse Reactions: gemfibrozil Allergy (Mild, Verified 12/11/20 13:28) Home Medications: Amiodarone HCl 200 mg PO DAILY 05/28/19 [History] Aspirin 81 mg PO DAILY 05/28/19 [History] Atorvastatin Calcium 40 mg PO HS 05/28/19 [History] Carvedilol [Coreg] 6.25 mg PO DAILY 09/24/20 [History] Docusate Sodium 100 mg PO DAILY 09/24/20 [History] Furosemide [Lasix] 20 mg PO DAILY 09/24/20 [History] Linagliptin [Tradjenta] 5 mg PO DAILY 09/24/20 [History] Hx Tetanus, Diphtheria Vaccination/Date Given: Yes Hx Influenza Vaccination/Date Given: Yes Hx Pneumococcal Vaccination/Date Given: Yes Immunizations Up to Date: Yes Travel Risk - International Travel Have you traveled outside of the country in past 3 weeks: No - Coronavirus Screening Are you exhibiting any of the following symptoms?: No Close contact with a COVID-19 positive Pt in past 14-21 Days: No - Vaccine Status Have you recieved a Covid-19 vaccination: Yes 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: 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 - Vaccination Dates Date of 2cond Vaccination (if applicable): august Comment: [facility] - Review of Systems Constitutional: No Fever, No Chills Eyes: No Symptoms Ears, Nose, & Throat: No Symptoms Respiratory: No Cough, No Dyspnea Cardiac: No Chest Pain, No Edema, No Syncope Abdominal/Gastrointestinal: No Abdominal Pain, No Nausea, No Vomiting, No Diarrhea Genitourinary Symptoms: No Dysuria Musculoskeletal: Joint Pain, Joint Swelling, No Back Pain, No Neck Pain Skin: No Rash Neurological: No Dizziness, No Focal Weakness, No Sensory Changes Psychological: No Symptoms Endocrine: No Symptoms All Other Systems: Reviewed and Negative - Past Medical History Pertinent Past Medical History: Yes Cardiac History: Coronary Artery Disease, High Cholesterol, Myocardial Infarction ([place]) Endocrine Medical History: Diabetes Type II History: Renal Disease - Past Surgical History Past Surgical History: Yes Cardiac: Internal Defibrillator, Pacemaker, Other Other Surgical History: Tonsillectomy, pacemaker/defib - Social History Smoking Status: Never smoker Exposure to second hand smoke: No Alcohol Use: None Drug Use: none Patient Lives Alone: Yes - Nursing Vital Signs Nursing Vital Signs: Initial Vital Signs Temperature 98.1 F 12/11/20 13:19 Pulse Rate 70 12/11/20 13:19 Respiratory Rate 18 12/11/20 13:19 Blood Pressure 140/75 12/11/20 13:19 O2 Sat by Pulse Oximetry 99 12/11/20 13:19 Pain Scale Pain Intensity 8 - Physical Exam General Appearance: moderate distress Eyes, Ears, Nose, Throat Exam: moist mucous membranes Neck Exam: non-tender, supple Cardiovascular/Respiratory Exam: chest non-tender, normal breath sounds, regular rate/rhythm, no respiratory distress Gastrointestinal/Abdominal Exam: non-tender, guarding Back Exam: normal inspection Knees Exam: left knee: joint effusion, swelling, bilateral knee: pain, soft tissue tenderness Ankle Exam: left ankle: joint effusion, swelling, bilateral ankle: bone tenderness, limited range of motion, pain, soft tissue tenderness Neuro/Tendon Exam: normal sensation, normal motor functions Mental Status Exam: alert, oriented x 3, cooperative Skin Exam: normal color, warm, dry SpO2 Interpretation: normal SpO2: 99 O2 Delivery: Room Air - Course Nursing assessment & vital signs reviewed: Yes - Radiology Exams Ankle X-ray Interpretation: Other (X-rays read by the radiologist showed no fractures or dislocations there is degenerative joint disease in both ankles and both knees.) Ordered Tests: Active Orders 24 hr Category Date Time Status ANKLE (3 VIEWS) Stat Exams 12/11/20 14:07 Completed ANKLE (3 VIEWS) Stat Exams 12/11/20 14:07 Completed KNEE (3 VIEWS) Stat Exams 12/11/20 14:08 Completed KNEE (3 VIEWS) Stat Exams 12/11/20 14:08 Completed VENOUS BILATERAL EXTREMITY [US] Stat Exams 12/11/20 13:33 Taken CBC W DIFF Stat Lab 12/11/20 14:26 Completed CK (IN-HOUSE) [CK-Creatinine Phosphokinase] Stat Lab 12/11/20 14:26 Completed CMP Stat Lab 12/11/20 14:26 Completed D-DIMER QUANTITATIVE Stat Lab 12/11/20 14:26 Completed Lactic Acid Stat Lab 12/11/20 13:24 Ordered PT INR [PROTIME WITH INR] Stat Lab 12/11/20 14:26 Completed SED RATE [Erythrocyte Sedimentation Rate] Stat Lab 12/11/20 14:26 Completed UA W/RFX UR CULTURE Stat Lab 12/11/20 13:25 Ordered Uric Acid Stat Lab 12/11/20 14:26 Completed Lab/Rad Data: Laboratory Result Diagrams 12/11/20 14:26 12/11/20 14:26 Laboratory Results 12/11/20 12/11/20 12/11/20 Range/Units 14:26 14:26 14:26 WBC (4.0-10.5) K/mm3 RBC (4.1-5.6) M/mm3 Hgb (12.5-18.0) gm/dl Hct (42-50) % MCV (78-100) fl MCH (26-32) pg MCHC (32-36) g/dl RDW (11.5-14.0) % Plt Count (150-450) K/mm3 MPV (7.5-11.0) fl Gran % (36.0-66.0) % Eos # (Auto) (0-0.5) Absolute Lymphs (auto) (1.0-4.6) Absolute Monos (auto) (0.0-1.3) Lymphocytes % (24.0-44.0) % Monocytes % (0.0-12.0) % Eosinophils % (0.00-5.0) % Basophils % (0.0-0.4) % Absolute Granulocytes (1.4-6.9) Basophils # (0-0.4) ESR (0-15) mm/hr PT 85.8 H (9.4-12.5) SECONDS INR 7.32 H* (0.8-3.0) D-Dimer (215-500) ng/mL Sodium (137-145) mmol/L Potassium (3.5-5.1) mmol/L Chloride (98-107) mmol/L Carbon Dioxide (22-30) mmol/L Anion Gap (5-15) MEQ/L BUN (9-20) mg/dL Creatinine (0.66-1.25) mg/dL Estimated GFR ML/MIN Glucose (74-106) mg/dL Uric Acid 13.2 H (3.5-7.2) mg/dL Calcium (8.4-10.2) mg/dL Total Bilirubin (0.2-1.3) mg/dL AST (17-59) U/L ALT (0-50) U/L Alkaline Phosphatase (38-126) U/L Creatine Kinase 132 (55-170) U/L Serum Total Protein (6.3-8.2) g/dL Albumin (3.5-5.0) g/dL 12/11/20 12/11/20 12/11/20 Range/Units 14:26 14:26 14:26 WBC (4.0-10.5) K/mm3 RBC (4.1-5.6) M/mm3 Hgb (12.5-18.0) gm/dl Hct (42-50) % MCV (78-100) fl MCH (26-32) pg MCHC (32-36) g/dl RDW (11.5-14.0) % Plt Count (150-450) K/mm3 MPV (7.5-11.0) fl Gran % (36.0-66.0) % Eos # (Auto) (0-0.5) Absolute Lymphs (auto) (1.0-4.6) Absolute Monos (auto) (0.0-1.3) Lymphocytes % (24.0-44.0) % Monocytes % (0.0-12.0) % Eosinophils % (0.00-5.0) % Basophils % (0.0-0.4) % Absolute Granulocytes (1.4-6.9) Basophils # (0-0.4) ESR 91 H (0-15) mm/hr PT (9.4-12.5) SECONDS INR (0.8-3.0) D-Dimer 1764 H* (215-500) ng/mL Sodium 134 L (137-145) mmol/L Potassium 3.6 (3.5-5.1) mmol/L Chloride 96 L (98-107) mmol/L Carbon Dioxide 23 (22-30) mmol/L Anion Gap 19.2 H (5-15) MEQ/L BUN 46 H (9-20) mg/dL Creatinine 2.82 H (0.66-1.25) mg/dL Estimated GFR 23.3 ML/MIN Glucose 173 H (74-106) mg/dL Uric Acid (3.5-7.2) mg/dL Calcium 8.7 (8.4-10.2) mg/dL Total Bilirubin 0.90 (0.2-1.3) mg/dL AST 50 (17-59) U/L ALT 38 (0-50) U/L Alkaline Phosphatase 228 H (38-126) U/L Creatine Kinase (55-170) U/L Serum Total Protein 8.2 (6.3-8.2) g/dL Albumin 4.2 (3.5-5.0) g/dL 12/11/20 Range/Units 14:26 WBC 12.3 H (4.0-10.5) K/mm3 RBC 4.22 (4.1-5.6) M/mm3 Hgb 12.0 L (12.5-18.0) gm/dl Hct 37.6 L (42-50) % MCV 89.1 (78-100) fl MCH 28.4 (26-32) pg MCHC 31.9 L (32-36) g/dl RDW 13.8 (11.5-14.0) % Plt Count 330 (150-450) K/mm3 MPV 9.9 (7.5-11.0) fl Gran % 84.3 H (36.0-66.0) % Eos # (Auto) 0.01 (0-0.5) Absolute Lymphs (auto) 1.07 (1.0-4.6) Absolute Monos (auto) 0.82 (0.0-1.3) Lymphocytes % 8.7 L (24.0-44.0) % Monocytes % 6.7 (0.0-12.0) % Eosinophils % 0.1 (0.00-5.0) % Basophils % 0.2 (0.0-0.4) % Absolute Granulocytes 10.39 H (1.4-6.9) Basophils # 0.02 (0-0.4) ESR (0-15) mm/hr PT (9.4-12.5) SECONDS INR (0.8-3.0) D-Dimer (215-500) ng/mL Sodium (137-145) mmol/L Potassium (3.5-5.1) mmol/L Chloride (98-107) mmol/L Carbon Dioxide (22-30) mmol/L Anion Gap (5-15) MEQ/L BUN (9-20) mg/dL Creatinine (0.66-1.25) mg/dL Estimated GFR ML/MIN Glucose (74-106) mg/dL Uric Acid (3.5-7.2) mg/dL Calcium (8.4-10.2) mg/dL Total Bilirubin (0.2-1.3) mg/dL AST (17-59) U/L ALT (0-50) U/L Alkaline Phosphatase (38-126) U/L Creatine Kinase (55-170) U/L Serum Total Protein (6.3-8.2) g/dL Albumin (3.5-5.0) g/dL - Progress Progress: unchanged Discussed with Dr.: Cisneros - Departure Departure Disposition: Observation Clinical Impression: Coagulopathy Condition: Stable Critical Care Time: No Referrals: DOCTOR,NO FAMILY [Primary Care Provider] -
[2020-12-11] MEDS ORDERED: Hydromorphone 1 mg/ml Injection IV PRN (16:15)
[2020-12-11] MEDS: solu-MEDROL 125 MG IV SCH (21:57)
[2020-12-11] MEDS: ZOCOR 20MG PO SCH (22:47)
[2020-12-12] MEDS ORDERED: solu-MEDROL 125 MG ONE (05:04)
[2020-12-12] MEDS: solu-MEDROL 125 MG IV SCH ×3 (05:14→16:57)
[2020-12-12 09:25] LABS: Appearance CLEAR (CLEAR); Bacteria RARE /HPF (NEGATIVE); Bilirubin NEGATIVE (NEGATIVE); Blood SMALL Ery/ul (0-5); Glucose 50 mg/dL (NEGATIVE); Ketones TRACE (NEGATIVE); Leukocyte Esterase NEGATIVE (NEGATIVE); Nitrite NEGATIVE (NEGATIVE); Protein,Urine Dip NEGATIVE (Negative); Specific Gravity 1.016 (1.005-1.025); Urobilinogen NEGATIVE mg/dL (0-1)
[2020-12-12] MEDS: Coreg 6.25 MG PO SCH (09:30)
[2020-12-12] MEDS: Cordarone 200 MG PO SCH (09:30)
[2020-12-12] MEDS: ECOTRIN 81 MG PO SCH (09:30)
[2020-12-12] MEDS: Januvia 50 MG PO SCH (09:30)
[2020-12-12] MEDS ORDERED: LASIX 20 MG PO SCH (10:00)
[2020-12-12] MEDS ORDERED: BABY ASPIRIN 81 MG CHEW PO SCH (10:00)
[2020-12-12] MEDS ORDERED: NON-FORMULARY ITEM (Linagliptin [Tradjenta] 5 MG) PO SCH (10:00)
[2020-12-12] MEDS ORDERED: WARFARIN SODIUM 2.5 MG PO SCH (10:00)
[2020-12-12 11:07] LABS: PROTIME 88.8 SECONDS (9.4-12.5)
[2020-12-12] MEDS: Lasix 40 MG PO SCH (11:14)
[2020-12-12] MEDS: LASIX 20 MG PO SCH (11:15)
[2020-12-12] MEDS ORDERED: NORCO 5/325 MG PO PRN (11:51)
[2020-12-12] MEDS: HUMALOG SQ PRN ×3 (12:53→22:00)
[2020-12-12 14:31] LABS: INR 7.54 (0.8-3.0)
--- NOTE | 2020-12-12 21:37 | XRAY ---
Exam: Bilateral lower extremity duplex Doppler venous ultrasound exam from 12/11/2020. Comparison: None. Indication: Patient complains of bilateral lower extremity pain. Findings: The exam within each lower extremity was obtained using grayscale images, color blood flow images, and Doppler tracings without and with augmentation. Normal transducer compression, color blood flow imaging, and Doppler signal with augmentation was seen throughout all the deep veins of the right lower extremity. Normal color blood flow and Doppler signal were seen within the profunda femoral vein as well. Normal color blood flow and Doppler signal is seen within the great saphenous vein near the superficial femoral vein junction in the proximal thigh. I also note normal transducer compression within the greater saphenous vein of the proximal thigh, mid right lower leg, and distal right lower leg. Normal transducer compression, color blood flow imaging and Doppler signal with augmentation was seen throughout all the deep veins of the left lower extremity. Normal color blood flow and Doppler signal were seen within the profunda femoral vein. Normal color blood flow and Doppler signal are seen within the greater saphenous vein near the superficial femoral vein junction in the proximal thigh. There appear to be some superficial edema within the distal left lower leg. I note normal compression of the proximal greater saphenous vein near the superficial femoral vein junction as well as within the mid greater saphenous vein and distal greater saphenous vein. Impression: 1. No findings of deep venous thrombosis are seen within either lower extremity. 2. No evidence of superficial venous thrombosis is seen within either lower extremity. 3. I note some soft tissue edema/swelling within the distal left lower leg. Correlate clinically. This is not seen on the right side.
[2020-12-12] MEDS: ZOCOR 20MG PO SCH (22:01)
[2020-12-13] MEDS: solu-MEDROL 125 MG IV SCH ×3 (00:48→16:38)
[2020-12-13] MEDS: Lasix 40 MG PO SCH (09:54)
[2020-12-13] MEDS: Coreg 6.25 MG PO SCH (09:54)
[2020-12-13] MEDS: Cordarone 200 MG PO SCH (09:54)
[2020-12-13] MEDS: ECOTRIN 81 MG PO SCH (09:54)
[2020-12-13] MEDS: Januvia 50 MG PO SCH (09:54)
[2020-12-13] MEDS: HUMALOG SQ PRN ×3 (10:00→16:38)
[2020-12-13 10:11] LABS: PROTIME 79.1 SECONDS (9.4-12.5)
[2020-12-13 10:15] LABS: ALBUMIN 3.5 g/dL (3.5-5.0); ANION GAP 17.2 MEQ/L (5-15); BILIRUBIN,TOTAL 0.5 mg/dL (0.2-1.3); Calcium 7.9 mg/dL (8.4-10.2); Creatinine 1 2.5 mg/dL (0.66-1.25); EST GLOMERULAR FILTRATION RATE 26.8 ML/MIN; Potassium 3.8 mmol/L (3.5-5.1)
[2020-12-13 10:17] LABS: INR 6.7 (0.8-3.0)
[2020-12-13] MEDS: ZOCOR 20MG PO SCH (22:51)
[2020-12-14] MEDS: solu-MEDROL 125 MG IV SCH ×2 (00:47→07:47)
[2020-12-14 05:32] LABS: INR 4.82 (0.8-3.0); PROTIME 56.9 SECONDS (9.4-12.5)
[2020-12-14 06:21] LABS: ALBUMIN 3.4 g/dL (3.5-5.0); ANION GAP 16.4 MEQ/L (5-15); BILIRUBIN,TOTAL 0.4 mg/dL (0.2-1.3); Creatinine 1 2.39 mg/dL (0.66-1.25); EST GLOMERULAR FILTRATION RATE 28.3 ML/MIN; Potassium 4.2 mmol/L (3.5-5.1); Total Protein 6.8 g/dL (6.3-8.2)
[2020-12-14 07:18] VITALS: BP 115/68; PULSE 58; O2SAT 94
[2020-12-14] MEDS: Cordarone 200 MG PO SCH (09:47)
[2020-12-14] MEDS: ECOTRIN 81 MG PO SCH (09:47)
[2020-12-14] MEDS: Januvia 50 MG PO SCH (09:47)
[2020-12-14] MEDS: LASIX 20 MG PO SCH (09:47)
[2020-12-14] MEDS: Lasix 40 MG PO SCH (09:47)
[2020-12-14] MEDS: Coreg 6.25 MG PO SCH (09:47)
--- NOTE | 2020-12-19 18:53 | PCM.SSS ---
History of Present Illness - Chief Complaint Chief Complaint: Gout Date: 12/14/20 History of Present Illness: is a 75 year old male. Presented to ER with severe restrictions in mobility and a flare of gout, the patient was also noted to have an elevated INR , with his inability to walk pt. was admitted for iv steroids, pain control, and observation of PT/INR - Review of Systems Constitutional: No Fever, No Chills Eyes: No Symptoms Ears, Nose, & Throat: No Symptoms Respiratory: No Cough, No Short Of Breath Cardiac: No Chest Pain, No Edema, No Syncope Abdominal/Gastrointestinal: No Abdominal Pain, No Nausea, No Vomiting, No Diarrhea Genitourinary Symptoms: No Dysuria Musculoskeletal: Joint Pain, Joint Swelling, No Back Pain, No Neck Pain Skin: No Rash Neurological: No Dizziness, No Focal Weakness, No Sensory Changes Psychological: No Symptoms Endocrine: No Symptoms Hematologic/Lymphatic: No Symptoms Immunological/Allergic: No Symptoms Medications & Allergies Home Medications: Home Medication List Amiodarone HCl 200 mg PO DAILY 05/28/19 [History Confirmed 12/11/20] Aspirin 81 mg PO DAILY 05/28/19 [History Confirmed 12/11/20] Atorvastatin Calcium 40 mg PO HS 05/28/19 [History Confirmed 12/11/20] Warfarin Sodium 2.5 mg PO DAILY #30 tablet 08/18/20 [Rx Confirmed 12/11/20] Carvedilol [Coreg] 6.25 mg PO DAILY 09/24/20 [History Confirmed 12/11/20] Furosemide [Lasix] 40 mg PO DAILY 09/24/20 [History Confirmed 12/11/20] Linagliptin [Tradjenta] 5 mg PO DAILY 09/24/20 [History Confirmed 12/11/20] Prednisone 10 mg [Deltasone 10 mg] 0 mg PO DAILY #47 tablet 12/14/20 [Rx] Allergies/Adverse Reactions: Allergies Allergy/AdvReac Type Severity Reaction Status Date / Time gemfibrozil Allergy Mild Verified 12/11/20 13:28 - Past Medical History Past Medical History: Yes Cardiac History: Coronary Artery Disease, High Cholesterol, Myocardial Infarction ([place]) Endocrine Medical History: Diabetes Type II History: Renal Disease - Past Surgical History Past Surgical History: Yes Cardiac History: Internal Defibrillator, Pacemaker, Other Other Surgical History: Tonsillectomy, pacemaker/defib - Social History Smoking Status: Unknown if ever smoked Exposure to second hand smoke: No Alcohol: None Drug Use: none - Physical Exam General Appearance: no apparent distress, alert Neurologic Exam: alert, oriented x 3, cooperative, normal mood/affect, nml cerebellar function, nml station & gait, sensation nml, No motor deficits Eye Exam: PERRL/EOMI, eyes nml inspection Ears, Nose, Throat Exam: normal ENT inspection, TMs normal, pharynx normal, moist mucous membranes Neck Exam: normal inspection, non-tender, supple, full range of motion Respiratory Exam: normal breath sounds, lungs clear, No respiratory distress Cardiovascular Exam: regular rate/rhythm, normal heart sounds, normal peripheral pulses Gastrointestinal/Abdomen Exam: soft, normal bowel sounds, No tenderness, No mass Back Exam: normal inspection, normal range of motion, No CVA tenderness, No vertebral tenderness Extremity Exam: normal range of motion, pelvis stable, joint swelling (knees and ankles bilaterally) Skin Exam: normal color, warm, dry, No rash Lymphatic Exam: No adenopathy Assessment/Plan (1) Elevated INR Status: Acute Code(s): R79.1 - ABNORMAL COAGULATION PROFILE (2) Gout Status: Acute Code(s): M10.9 - GOUT, UNSPECIFIED Hospital Summary - Hospital Course Hospital Course: Pt. admitted and swelling showed improvement by the next day but still some difficulty with ambulation, despite his coumadin being held his INR continued up until the last day of his hospitalization when it had decreased to the 4 range and with no signs of active bleeding and his ability to ambulate without assistance it was felt he was stable to be discharged to home. - Vitals & Intake/Output Vital Signs: Vital Signs Temperature 98.2 F 12/14/20 07:18 Pulse Rate 58 L 12/14/20 07:18 Respiratory Rate 16 12/14/20 07:18 Blood Pressure 115/68 12/14/20 07:18 O2 Sat by Pulse Oximetry 94 L 12/14/20 07:18 - Lab Result Diagrams: 12/11/20 14:26 12/14/20 04:15 - Discharge Discharge Date: 12/14/20 Disposition: Home, Self-Care Condition: Stable Prescriptions: New Prednisone 10 mg [Deltasone 10 mg] 0 mg PO DAILY #47 tablet No Action Atorvastatin Calcium 40 mg PO HS Aspirin 81 mg PO DAILY Amiodarone HCl 200 mg PO DAILY Warfarin Sodium 2.5 mg PO DAILY #30 tablet Furosemide [Lasix] 40 mg PO DAILY Carvedilol [Coreg] 6.25 mg PO DAILY Linagliptin [Tradjenta] 5 mg PO DAILY Instructions: Lifestyle Changes to Manage Gout, Gout (DC), What to Do When Your INR Is Too High Additional Instructions: FOLLOW UP WITH [facility]INIC. CONTINUE TO HOLD COUMADIN, UNTIL F/U WITH [facility] CLINIC. START PREDNISONE TOMORROW. Follow up with: TANISHA CONTRERAS MD [Primary Care Provider] - 12/24/20 11:15 am Forms: Patient Portal Information
== END 2020-12-14 11:10 | disposition home or self-care (01) ==
LOC: ED 13:18 → MED SURG 18:46
PROVIDERS: ADMIT Family Medicine; ATTEND Family Medicine
DX: R79.1 Abnormal coagulation profile (principal); M10.9 Gout, unspecified; M25.562 Pain in left knee; M25.561 Pain in right knee; E11.9 Type 2 diabetes mellitus without complications; I48.91 Unspecified atrial fibrillation; M79.89 Other specified soft tissue disorders; Z79.01 Long term (current) use of anticoagulants; Z79.899 Other long term (current) drug therapy; E78.00 Pure hypercholesterolemia, unspecified; Z20.828 Contact with and (suspected) exposure to other viral communicable diseases
CPT/HCPCS: 36415; 73562; 73610; 80053; 81001; 82550; 82947; 84550; 85025; 85379; 85610; 85652; 86140; 93268; 93970; 99285; G0378; U0003; J1817; J2930; A9270-GY

== ENCOUNTER 2022-07-20 22:10 | Emergency (ER) | payer MEDICARE ==
[2022-07-20] MEDS ORDERED: DUONEB 0.5-3 MG/3 ml Neb IH ONE ×2 (22:24→22:28)
[2022-07-20] MEDS ORDERED: solu-MEDROL 125 MG, Sterile H2O 10 ml 2 ML IV ONE ×2 (22:24)
[2022-07-20 22:32] VITALS: O2SAT 98
--- NOTE | 2022-07-20 22:50 | ERPHSYRPT ---
- History of Present Illness Time Seen by Provider: 07/20/22 22:12 Source: patient Exam Limitations: no limitations Patient Subjective Stated Complaint: pt states I had a coughing fit for the past 45 minutes Triage Nursing Assessment: pt ambulated into the er; pt is axo x4; c/o cough; pt states 1/10 pain to abd; clear lung sounds in all lobes; no respiratory distress present; no cough present at time of assessment; hyperactive bowel sounds in all quads; skin PDW; vitals wnl Physician History: Patient here with cough, cold, congestion. 4 days. Patient complains of some abdominal discomfort. No falls or trauma. Patient has a history of a coagulopathy, is on warfarin. No shortness of breath, tachycardia, signs or symptoms of a PE today. No active chest pain today. Patient is actively wheezy on exam as I walk into the room. Patient is mostly here because he had a coughing episode that he felt like he had a hard time catching his breath with that. This occurred approximately 45 minutes ago. He is back to his baseline of feeling like he has a viral illness. Timing/Duration: today Severity: mild Modifying Factors: Improves With: other Associated Symptoms: cough Allergies/Adverse Reactions: gemfibrozil Allergy (Mild, Verified 07/20/22 22:16) Home Medications: Amiodarone HCl 100 mg PO DAILY 05/28/19 [History] Aspirin 81 mg PO DAILY 05/28/19 [History] Atorvastatin Calcium 40 mg PO HS 05/28/19 [History] Carvedilol [Coreg] 6.25 mg PO BID 09/24/20 [History] Furosemide [Lasix] 40 mg PO BID 09/24/20 [History] Linagliptin [Tradjenta] 5 mg PO DAILY 09/24/20 [History] Empagliflozin [Jardiance] 25 mg PO DAILY 08/26/21 [History] Warfarin Sodium 2.5 mg PO SUTUTHSA 08/26/21 [History] Allopurinol 300 mg [Zyloprim 300 mg] 300 mg PO DAILY 10/08/21 [History] Cholecalciferol (Vitamin D3) [Vitamin D] 25 mcg PO DAILY 10/08/21 [History] Docusate Sodium 100 mg [Docusate Sodium 100 MG] 100 mg PO DAILY 10/08/21 [History] Levothyroxine Sodium 100 Mcg [Synthroid 100 Mcg] 100 mcg PO DAILY 05/05/22 [History] Semaglutide [Ozempic] 0.5 mg SQ SA 05/05/22 [History] Hx Tetanus, Diphtheria Vaccination/Date Given: Yes Hx Influenza Vaccination/Date Given: Yes Hx Pneumococcal Vaccination/Date Given: Yes Travel Risk - International Travel Have you traveled outside of the country in past 3 weeks: No - Coronavirus Screening Are you exhibiting any of the following symptoms?: Yes Symptoms: Cough: New Onset Close contact with a COVID-19 positive Pt in past 14-21 Days: No - Vaccine Status Have you recieved a Covid-19 vaccination: Yes Motion Picture Narrator: Moderna - Vaccination Dates Date of 2cond Vaccination (if applicable): unknown Comment: [facility]. pt already d/c and don't know 1st vaccination date to fill in - Review of Systems Constitutional: No Fever, No Chills Eyes: No Symptoms Ears, Nose, & Throat: No Symptoms, Other (Cough, cold, congestion) Respiratory: Cough, No Dyspnea Cardiac: No Chest Pain, No Edema, No Syncope Abdominal/Gastrointestinal: Other (Mild epigastric discomfort), No Abdominal Pain, No Nausea, No Vomiting, No Diarrhea Genitourinary Symptoms: No Dysuria Musculoskeletal: No Back Pain, No Neck Pain Skin: No Rash Neurological: No Dizziness, No Focal Weakness, No Sensory Changes Psychological: No Symptoms Endocrine: No Symptoms All Other Systems: Reviewed and Negative - Past Medical History Pertinent Past Medical History: Yes Cardiac History: Coronary Artery Disease, High Cholesterol, Myocardial Infarction ([place]) Endocrine Medical History: Diabetes Type II History: Renal Disease - Past Surgical History Past Surgical History: Yes Cardiac: Internal Defibrillator, Pacemaker, Other Other Surgical History: Tonsillectomy, pacemaker/defib - Social History Smoking Status: Former smoker Exposure to second hand smoke: No Alcohol Use: None Drug Use: none Patient Lives Alone: Yes - Nursing Vital Signs Nursing Vital Signs: Initial Vital Signs Temperature 97.8 F 07/20/22 22:22 Pulse Rate 81 07/20/22 22:22 Respiratory Rate 16 07/20/22 22:22 Blood Pressure 118/87 07/20/22 22:22 O2 Sat by Pulse Oximetry 98 07/20/22 22:22 Pain Scale Pain Intensity 1 - Physical Exam General Appearance: no apparent distress, alert Eye Exam: PERRL/EOMI, eyes nml inspection Ears, Nose, Throat Exam: normal ENT inspection, TMs normal, pharynx normal, moist mucous membranes Neck Exam: normal inspection, non-tender, supple, full range of motion Respiratory Exam: lungs clear, wheezing, No respiratory distress Cardiovascular Exam: regular rate/rhythm, normal heart sounds, normal peripheral pulses Gastrointestinal/Abdomen Exam: soft, normal bowel sounds, other (No epigastric tenderness, rebound, guarding), No tenderness, No mass Back Exam: normal inspection, normal range of motion, No CVA tenderness, No vertebral tenderness Extremity Exam: normal inspection, normal range of motion, pelvis stable Neurologic Exam: alert, oriented x 3, cooperative, normal mood/affect, nml cerebellar function, nml station & gait, sensation nml, No motor deficits Skin Exam: normal color, warm, dry, No rash Lymphatic Exam: No adenopathy SpO2: 98 - Course Nursing assessment & vital signs reviewed: Yes EKG Interpreted by Me: Sinus Rhythm Ordered Tests: Active Orders 24 hr Category Date Time Status EKG-ER Only STAT Care 07/20/22 22:24 Active IV Insertion STAT Care 07/20/22 22:24 Active CHEST 2 VIEWS (PA AND LAT) Stat Exams 07/20/22 22:24 Taken CBC W DIFF Stat Lab 07/20/22 23:02 Completed CMP Stat Lab 07/20/22 23:02 Completed LIPASE Stat Lab 07/20/22 23:02 Received NT PRO BNP Stat Lab 07/20/22 23:02 Completed TROPONIN Q4H Lab 07/20/22 23:02 Received TROPONIN Q4H Lab 07/21/22 02:30 Ordered TROPONIN Q4H Lab 07/21/22 06:30 Ordered Respiratory Therapy Assessment DAILY RT 07/20/22 22:48 Active Medication Summary Discontinued Medications Generic Name Dose Route Start Last Admin Trade Name Freq PRN Reason Stop Dose Admin Albuterol/Ipratropium 3 ml 07/20/22 22:24 07/20/22 22:35 Ipratropium/Albuterol Sulfate 3 Ml Ampul.Neb IH 07/20/22 22:25 3 ml STAT ONE Administration Albuterol/Ipratropium Confirm 07/20/22 22:28 Ipratropium/Albuterol Sulfate 3 Ml Ampul.Neb Administered 07/20/22 22:29 Dose 3 ml IH .STK-MED ONE Methylprednisolone Sodium 0 mg 07/20/22 22:24 07/20/22 22:58 Succinate 125 mg/ Sterile IV 07/20/22 22:25 125 mg Water 2 ml STAT ONE Administration Methylprednisolone Sodium Succinate Confirm 07/20/22 22:57 Methylprednis Sod Succ 125 Mg/2 Ml Vial Administered 07/20/22 22:58 Dose 125 mg .ROUTE .STK-MED ONE Sterile Water Confirm 07/20/22 22:57 Water For Injection,Sterile 10 Ml Vial Administered 07/20/22 22:58 Dose 10 ml IJ .STK-MED ONE Lab/Rad Data: Laboratory Result Diagrams 07/20/22 23:02 07/20/22 23:02 Laboratory Results 07/20/22 07/20/22 07/20/22 Range/Units 23:02 23:02 22:50 WBC 7.7 (4.0-10.5) x10^3/uL RBC 4.10 (4.1-5.6) x10^6/uL Hgb 12.2 L (12.5-18.0) g/dL Hct 39.0 L (42-50) % MCV 95.1 (78-100) fL MCH 29.8 (26-32) pg MCHC 31.3 L (32-36) g/dL RDW 16.8 H (11.5-14.0) % Plt Count 224 (150-450) x10^3/uL MPV 10.4 (7.5-11.0) fL Gran % 63.3 (36.0-66.0) % Immature Gran % (Auto) 0.1 (0.00-0.4) % Nucleat RBC Rel Count 0.0 (0.00-0.1) % Eos # (Auto) 0.37 (0-0.5) x10^3/uL Immature Gran # (Auto) 0.01 (0.00-0.03) x10^3u/L Absolute Lymphs (auto) 1.79 (1.0-4.6) x10^3/uL Absolute Monos (auto) 0.60 (0.0-1.3) x10^3/uL Absolute Nucleated RBC 0.00 (0.00-0.01) x10^3u/L Lymphocytes % 23.2 L (24.0-44.0) % Monocytes % 7.8 (0.0-12.0) % Eosinophils % 4.8 (0.00-5.0) % Basophils % 0.8 (0.0-0.4) % Absolute Granulocytes 4.90 (1.4-6.9) x10^3/uL Basophils # 0.06 (0-0.4) x10^3/uL Sodium 136 L (137-145) mmol/L Potassium 4.2 (3.5-5.1) mmol/L Chloride 103 (98-107) mmol/L Carbon Dioxide 23 (22-30) mmol/L Anion Gap 14.2 (5-15) MEQ/L BUN 44 H (9-20) mg/dL Creatinine 2.54 H (0.66-1.25) mg/dL Estimated GFR 26.2 ML/MIN Glucose 206 H (74-106) mg/dL Calcium 8.4 (8.4-10.2) mg/dL Total Bilirubin 0.70 (0.2-1.3) mg/dL AST 35 (17-59) U/L ALT 45 (0-50) U/L Alkaline Phosphatase 237 H (38-126) U/L NT-Pro-B Natriuret Pep 11952 H (0-1800) pg/mL Serum Total Protein 7.4 (6.3-8.2) g/dL Albumin 4.2 (3.5-5.0) g/dL Influenza Type A Ag NEGATIVE (NEGATIVE) Influenza Type B Ag NEGATIVE (NEGATIVE) RSV (PCR) POSITIVE (Negative) SARS-CoV-2 (PCR) NEGATIVE (NEGATIVE) - Progress Progress: improved Progress Note: 07/20/22 22:50 Differential diagnosis includes NSTEMI, STEMI, pneumonia, flu, RSV, COVID, other pneumonia. -Plan for basic labs, EKG, IV, albuterol, steroids 07/21/22 00:13 EKG shows no obvious ischemic changes. Patient's wheezes have resolved with albuterol and steroids. Patient's CHF peptide is slightly elevated. Patient does have a known history of elevated CHF peptide's and congestive heart failure. Currently on Lasix. 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 Chest x-ray shows possible retrocardiac pneumonia in the setting of patient being positive for RSV. I do believe this to be his most likely issue. We will place patient on a Z-Steve going home in case there is a component of bacterial pneumonia. Patient will continue to take his Lasix with close follow-up as described. Counseled pt/family regarding: lab results, diagnosis, need for follow-up, rad results - Departure Departure Disposition: Home Clinical Impression: Respiratory syncytial virus pneumonia, Elevated brain natriuretic peptide (BNP) level Condition: Stable Critical Care Time: No Referrals: [facility] [Primary Care Provider] - Follow up/PCP as directed Instructions: Pneumonia, Adult (DC) Additional Instructions: Today you have an elevated CHF peptide and continued poor kidney function. I believe that you have a RSV pneumonia. Take antibiotics as directed. Follow-up with your primary care doctor for your elevated CHF peptide and poor kidney function. You should be reevaluated in 24 hours. You may return here sooner for new or changing symptoms. Prescriptions: Azithromycin 250 mg [Zithromax 250 MG TABLET] 250 mg PO ZPACK #6 tablet
[2022-07-20] MEDS ORDERED: Sterile H2O 10 ml IJ ONE (22:57)
[2022-07-20] MEDS ORDERED: solu-MEDROL ONE (22:57)
[2022-07-20 23:07] LABS: BASOPHIL % 0.8 % (0.0-0.4); Basophil (Absolute #) 0.06 x10^3/uL (0-0.4); Eosinophil % 4.8 % (0.00-5.0); Eosinophil (Absolute #) 0.37 x10^3/uL (0-0.5); Hemoglobin 12.2 g/dL (12.5-18.0); IMMATURE GRAN # 0.01 x10^3u/L (0.00-0.03); IMMATURE GRAN % 0.1 % (0.00-0.4); Lymphocyte (Absolute #) 1.79 x10^3/uL (1.0-4.6); Lymphocytes % 23.2 % (24.0-44.0); Mean Cell Volume 95.1 fL (78-100); Mean Corpuscular Hemoglobin 29.8 pg (26-32); Mean Corpuscular Hgb Concent. 31.3 g/dL (32-36); Mean Platelet Volume 10.4 fL (7.5-11.0); Monocytes % 7.8 % (0.0-12.0); Neutrophil % 63.3 % (36.0-66.0); Platelet Count 224 x10^3/uL (150-450); Red Cell Distribution Width 16.8 % (11.5-14.0); White Blood Count 7.7 x10^3/uL (4.0-10.5)
[2022-07-20 23:32] LABS: ALBUMIN 4.2 g/dL (3.5-5.0); ANION GAP 14.2 MEQ/L (5-15); BILIRUBIN,TOTAL 0.7 mg/dL (0.2-1.3); Calcium 8.4 mg/dL (8.4-10.2); Creatinine 1 2.54 mg/dL (0.66-1.25); EST GLOMERULAR FILTRATION RATE 26.2 ML/MIN; Potassium 4.2 mmol/L (3.5-5.1); Total Protein 7.4 g/dL (6.3-8.2)
[2022-07-20 23:42] LABS: INFLUENZA A NEGATIVE (NEGATIVE); INFLUENZA B NEGATIVE (NEGATIVE); SARS-CoV-2 Xpert Express NEGATIVE (NEGATIVE)
[2022-07-20 23:50] LABS: RESPIRATORY SYNCTIAL VIRUS POSITIVE (Negative)
[2022-07-21 00:11] VITALS: BP 111/65; PULSE 81
--- NOTE | 2022-07-21 09:23 | XRAY ---
Indication: Pneumonia. CHF. Comparison: May 28, 2019 PA/lateral chest now demonstrates minimal bilateral interstitial edema without focal infiltrate, consolidation, or large effusion. Remaining chest unchanged again demonstrating cardiomegaly, left AICD, osteopenia, and mild bony degenerative changes.
== END 2022-07-21 00:27 | disposition home or self-care (01) ==
LOC: ED 22:10
DX: J12.1 Respiratory syncytial virus pneumonia (principal); R79.89 Other specified abnormal findings of blood chemistry; R05.1 Acute cough; E78.5 Hyperlipidemia, unspecified; E11.9 Type 2 diabetes mellitus without complications; Z79.01 Long term (current) use of anticoagulants; Z79.84 Long term (current) use of oral hypoglycemic drugs; Z79.85 Long-term (current) use of injectable non-insulin antidiabetic drugs; Z79.899 Other long term (current) drug therapy
CPT/HCPCS: 0241U; 36000; 36415; 71046; 80053; 83690; 83880; 84484; 85025; 93005; 94640; 96374; 99284; J2930; A9270-GY

== ENCOUNTER 2022-07-22 07:26 | Emergency (ER) | payer MEDICARE ==
[2022-07-22] MEDS ORDERED: solu-MEDROL 125 MG, Sterile H2O 10 ml 2 ML IV ONE ×2 (07:45)
[2022-07-22] MEDS ORDERED: Sodium Chloride 0.9% 1000 ML 1,000 ML IV SCH (07:45)
[2022-07-22] MEDS ORDERED: DUONEB 0.5-3 MG/3 ml Neb IH ONE ×2 (07:45→07:51)
[2022-07-22] MEDS ORDERED: solu-MEDROL ONE (07:53)
[2022-07-22] MEDS ORDERED: Sterile H2O 10 ml IJ ONE (07:53)
[2022-07-22] MEDS ORDERED: Sodium Chloride 0.9% 1000 ML 1,000 ML ONE (07:54)
--- NOTE | 2022-07-22 07:56 | ERPHSYRPT ---
- History of Present Illness Time Seen by Provider: 07/22/22 07:48 Source: patient Exam Limitations: no limitations Physician History: Pt is a 77 yr old male with Hx complicated by comorbidities of chronic CHF with EF 24% and Internal pacer/defib in place - no recent episodes of firing. He is on Coumadin for his AC and may have had prior afib as well. Hx [place] 2018. DM and hypothyroid Txd. CRD reported by pt hx. He was seen here in ER last week and found to have RSV then had f/u with PMD Dr. Brown yesterday and just started Z Steve in case of early pneumonia. He awakened with SOBreath early this am, and tried breathing outside cold air which helped some. He has no current pain , but has been feeling 'bad' all week, and some pain intermittent bilateral lower chest and epigastrium but no abdominal pain and no N or V. He feels that he has gained 5-10 pounds this week and notices some increased swelling. Ext with 1-2 + edema, and neg homans - no erythema. CHest is clear Ht reg without M. Abd soft nontender without peritoneal signs or masses. Requesting records from [facility] to review cardiac and resp Hx. Management - Pt has CRD - will check RFTs, and this may complicate management if D Dimer is elevated and PE CR with contrast would be indicated - in that case a VQ scan would be arranged to rule out PE. Timing/Duration: today Severity of Dyspnea-Max: moderate Severity of Dyspnea-Current: moderate Possible Cause: occasional episodes Modifying Factors: Improves With: other (sitting up helps) Associated Symptoms: cough, chest pain/discomfort, leg swelling, painful breathing Allergies/Adverse Reactions: gemfibrozil Allergy (Mild, Verified 07/22/22 07:49) Home Medications: Amiodarone HCl 100 mg PO DAILY 05/28/19 [History] Aspirin 81 mg PO DAILY 05/28/19 [History] Atorvastatin Calcium 40 mg PO HS 05/28/19 [History] Carvedilol [Coreg] 6.25 mg PO BID 09/24/20 [History] Furosemide [Lasix] 40 mg PO BID 09/24/20 [History] Linagliptin [Tradjenta] 5 mg PO DAILY 09/24/20 [History] Empagliflozin [Jardiance] 25 mg PO DAILY 08/26/21 [History] Warfarin Sodium 2.5 mg PO SUTUTHSA 08/26/21 [History] Allopurinol 300 mg [Zyloprim 300 mg] 300 mg PO DAILY 10/08/21 [History] Cholecalciferol (Vitamin D3) [Vitamin D] 25 mcg PO DAILY 10/08/21 [History] Docusate Sodium 100 mg [Docusate Sodium 100 MG] 100 mg PO DAILY 10/08/21 [History] Levothyroxine Sodium 100 Mcg [Synthroid 100 Mcg] 100 mcg PO DAILY 05/05/22 [History] Semaglutide [Ozempic] 0.5 mg SQ SA 05/05/22 [History] Hx Tetanus, Diphtheria Vaccination/Date Given: Yes Hx Influenza Vaccination/Date Given: Yes Hx Pneumococcal Vaccination/Date Given: Yes Travel Risk - Vaccine Status Have you recieved a Covid-19 vaccination: Yes Analytics Associate: Moderna - Vaccination Dates Date of 2cond Vaccination (if applicable): unknown Comment: [facility]. pt already d/c and don't know 1st vaccination date to fill in - Review of Systems Constitutional: No Fever, No Chills Eyes: No Symptoms Ears, Nose, & Throat: No Symptoms Respiratory: Cough, Dyspnea Cardiac: Other (had lower chest pain - resolved), No Chest Pain, No Edema, No Syncope Abdominal/Gastrointestinal: No Abdominal Pain, No Nausea, No Vomiting, No Diarrhea Genitourinary Symptoms: No Dysuria Musculoskeletal: No Back Pain, No Neck Pain Skin: No Rash Neurological: No Dizziness, No Focal Weakness, No Sensory Changes Psychological: No Symptoms Endocrine: No Symptoms Hematologic/Lymphatic: No Symptoms Immunological/Allergic: No Symptoms All Other Systems: Reviewed and Negative - Past Medical History Pertinent Past Medical History: Yes Cardiac History: Coronary Artery Disease, High Cholesterol, Myocardial Infarctio n ([place]) Endocrine Medical History: Diabetes Type II History: Renal Disease - Past Surgical History Past Surgical History: Yes Cardiac: Internal Defibrillator, Pacemaker, Other Other Surgical History: Tonsillectomy, pacemaker/defib - Social History Smoking Status: Former smoker Exposure to second hand smoke: No Alcohol Use: None Drug Use: none Patient Lives Alone: Yes - Nursing Vital Signs Nursing Vital Signs: Initial Vital Signs Temperature 97.5 F 07/22/22 07:41 Pulse Rate 76 07/22/22 07:41 Respiratory Rate 20 07/22/22 07:41 Blood Pressure 110/71 07/22/22 07:41 O2 Sat by Pulse Oximetry 96 07/22/22 07:41 Pain Scale Pain Intensity 0 - Physical Exam General Appearance: no apparent distress, alert Eye Exam: PERRL/EOMI Neck Exam: normal inspection, supple Respiratory Exam: lungs clear, airway intact Cardiovascular/Chest Exam: normal heart sounds, regular rate/rhythm Abdominal/Gastrointestinal Exam: soft, No tenderness, No distention, No mass Extremity Exam: non-tender, normal range of motion, normal inspection, no calf tenderness, no pedal edema Peripheral Pulses Exam: carotid (R): 2+, carotid (L): 2+, femoral (R): 2+, femoral (L): 2+, dorsalis-pedis (R): 2+, dorsalis-pedis (L): 2+ Neurologic Exam: alert, oriented x 3, cooperative, stakes player II-XII nml as tested, sensation nml, No motor deficits Skin Exam: normal color, warm, No dry SpO2 Interpretation: normal SpO2: 96 O2 Delivery: Room Air - Course Nursing assessment & vital signs reviewed: Yes EKG Interpreted by Me: NORMAL INTERVALS, Left Bundle Branch Block, Non-specific ST Changes, Other (Paced rythym similar to prior. ) - Radiology Exams Chest X-ray Interpretation: Interpreted by me, Reviewed by me, Infiltrates, Other (cardiomegally and pacer defib. CHF similar to prior Jul) Ordered Tests: Active Orders 24 hr Category Date Time Status Robotics Systems Engineer STAT Care 07/22/22 07:47 Active EKG-ER Only STAT Care 07/22/22 07:45 Active IV Insertion STAT Care 07/22/22 07:45 Active CHEST 2 VIEWS (PA AND LAT) Stat Exams 07/22/22 07:46 Completed CBC W DIFF Stat Lab 07/22/22 08:06 Completed CMP Stat Lab 07/22/22 08:06 Completed CULTURE,URINE Stat Lab 07/22/22 09:43 Received D-DIMER QUANTITATIVE Stat Lab 07/22/22 08:06 Completed Lactic Acid Stat Lab 07/22/22 08:06 Completed NT PRO BNP Stat Lab 07/22/22 08:06 Completed PROTIME WITH INR Stat Lab 07/22/22 08:06 Completed TROPONIN Q4H Lab 07/22/22 08:06 Completed TROPONIN Q4H Lab 07/22/22 12:00 Ordered TROPONIN Q4H Lab 07/22/22 16:00 Ordered UA W/RFX UR CULTURE Stat Lab 07/22/22 09:43 Completed Respiratory Therapy Assessment DAILY RT 07/22/22 07:57 Active Medication Summary Generic Name Dose Route Start Last Admin Trade Name Freq PRN Reason Stop Dose Admin Sodium Chloride 1,000 mls @ 50 mls/hr 07/22/22 07:45 07/22/22 07:56 Sodium Chloride 0.9% 1000 Ml IV 08/21/22 07:44 50 mls/hr .Q20H MICH Administration Discontinued Medications Generic Name Dose Route Start Last Admin Trade Name Freq PRN Reason Stop Dose Admin Albuterol/Ipratropium 3 ml 07/22/22 07:45 07/22/22 07:55 Ipratropium/Albuterol Sulfate 3 Ml Ampul.Neb IH 07/22/22 07:46 3 ml STAT ONE Administration Albuterol/Ipratropium Confirm 07/22/22 07:51 Ipratropium/Albuterol Sulfate 3 Ml Ampul.Neb Administered 07/22/22 07:52 Dose 3 ml IH .STK-MED ONE Methylprednisolone Sodium 0 mg 07/22/22 07:45 07/22/22 07:56 Succinate 125 mg/ Sterile IV 07/22/22 07:46 125 mg Water 2 ml STAT ONE Administration Furosemide Confirm 07/22/22 11:12 Furosemide 20 Mg/Vial Administered 07/22/22 11:13 Dose 20 mg .ROUTE .STK-MED ONE Methylprednisolone Sodium Succinate Confirm 07/22/22 07:53 Methylprednis Sod Succ 125 Mg/2 Ml Vial Administered 07/22/22 07:54 Dose 125 mg .ROUTE .STK-MED ONE Sterile Water Confirm 07/22/22 07:53 Water For Injection,Sterile 10 Ml Vial Administered 07/22/22 07:54 Dose 10 ml IJ .STK-MED ONE Lab/Rad Data: Laboratory Result Diagrams 07/22/22 08:06 07/22/22 08:06 Laboratory Results 07/22/22 07/22/22 07/22/22 Range/Units 09:43 08:06 08:06 WBC (4.0-10.5) x10^3/uL RBC (4.1-5.6) x10^6/uL Hgb (12.5-18.0) g/dL Hct (42-50) % MCV (78-100) fL MCH (26-32) pg MCHC (32-36) g/dL RDW (11.5-14.0) % Plt Count (150-450) x10^3/uL MPV (7.5-11.0) fL Gran % (36.0-66.0) % Immature Gran % (Auto) (0.00-0.4) % Nucleat RBC Rel Count (0.00-0.1) % Eos # (Auto) (0-0.5) x10^3/uL Immature Gran # (Auto) (0.00-0.03) x10^3u/L Absolute Lymphs (auto) (1.0-4.6) x10^3/uL Absolute Monos (auto) (0.0-1.3) x10^3/uL Absolute Nucleated RBC (0.00-0.01) x10^3u/L Lymphocytes % (24.0-44.0) % Monocytes % (0.0-12.0) % Eosinophils % (0.00-5.0) % Basophils % (0.0-0.4) % Absolute Granulocytes (1.4-6.9) x10^3/uL Basophils # (0-0.4) x10^3/uL PT (9.4-12.5) SECONDS INR (0.8-3.0) D-Dimer (0.0-0.50) mg/L Sodium (137-145) mmol/L Potassium (3.5-5.1) mmol/L Chloride (98-107) mmol/L Carbon Dioxide (22-30) mmol/L Anion Gap (5-15) MEQ/L BUN (9-20) mg/dL Creatinine (0.66-1.25) mg/dL Estimated GFR ML/MIN Glucose (74-106) mg/dL Lactic Acid (0.4-2.0) Calcium (8.4-10.2) mg/dL Total Bilirubin (0.2-1.3) mg/dL AST (17-59) U/L ALT (0-50) U/L Alkaline Phosphatase (38-126) U/L Troponin I 0.041 H* (0.000-0.034) ng/mL NT-Pro-B Natriuret Pep (0-1800) pg/mL Serum Total Protein (6.3-8.2) g/dL Albumin (3.5-5.0) g/dL Urine Color Yellow (Yellow) Urine Appearance Clear (Clear) Urine pH 5.0 (4.6-8.0) Ur Specific [place] 1.020 (1.005-1.030) Urine Protein Negative (Negative) Urine Glucose (UA) >=1000 A (Negative) mg/dL Urine Ketones Negative (Negative) Urine Blood Negative (Negative) Urine Nitrite Negative (Negative) Urine Bilirubin Negative (Negative) Urine Urobilinogen 0.2 (0.2) mg/dL Ur Leukocyte Esterase Negative (Negative) U Hyaline Cast (Auto) NONE SEEN (0-2) /LPF Urine Microscopic RBC 0-2 (0-5) /HPF Urine Microscopic WBC 6-10 A (0-5) /HPF Ur Epithelial Cells None Seen (None Seen) /HPF Urine Bacteria None Seen (None Seen) /HPF Urine Culture Reflexed YES (NO) Influenza Type A Ag NEGATIVE (NEGATIVE) Influenza Type B Ag NEGATIVE (NEGATIVE) RSV (PCR) POSITIVE (Negative) SARS-CoV-2 (PCR) NEGATIVE (NEGATIVE) 07/22/22 07/22/22 07/22/22 Range/Units 08:06 08:06 08:06 WBC (4.0-10.5) x10^3/uL RBC (4.1-5.6) x10^6/uL Hgb (12.5-18.0) g/dL Hct (42-50) % MCV (78-100) fL MCH (26-32) pg MCHC (32-36) g/dL RDW (11.5-14.0) % Plt Count (150-450) x10^3/uL MPV (7.5-11.0) fL Gran % (36.0-66.0) % Immature Gran % (Auto) (0.00-0.4) % Nucleat RBC Rel Count (0.00-0.1) % Eos # (Auto) (0-0.5) x10^3/uL Immature Gran # (Auto) (0.00-0.03) x10^3u/L Absolute Lymphs (auto) (1.0-4.6) x10^3/uL Absolute Monos (auto) (0.0-1.3) x10^3/uL Absolute Nucleated RBC (0.00-0.01) x10^3u/L Lymphocytes % (24.0-44.0) % Monocytes % (0.0-12.0) % Eosinophils % (0.00-5.0) % Basophils % (0.0-0.4) % Absolute Granulocytes (1.4-6.9) x10^3/uL Basophils # (0-0.4) x10^3/uL PT 30.1 H (9.4-12.5) SECONDS INR 3.15 H (0.8-3.0) D-Dimer 0.50 (0.0-0.50) mg/L Sodium 135 L (137-145) mmol/L Potassium 4.0 (3.5-5.1) mmol/L Chloride 99 (98-107) mmol/L Carbon Dioxide 23 (22-30) mmol/L Anion Gap 16.3 H (5-15) MEQ/L BUN 55 H (9-20) mg/dL Creatinine 2.92 H (0.66-1.25) mg/dL Estimated GFR 22.3 ML/MIN Glucose 244 H (74-106) mg/dL Lactic Acid 1.5 (0.4-2.0) Calcium 8.8 (8.4-10.2) mg/dL Total Bilirubin 0.80 (0.2-1.3) mg/dL AST 29 (17-59) U/L ALT 36 (0-50) U/L Alkaline Phosphatase 190 H (38-126) U/L Troponin I (0.000-0.034) ng/mL NT-Pro-B Natriuret Pep 01095 H (0-1800) pg/mL Serum Total Protein 7.5 (6.3-8.2) g/dL Albumin 4.3 (3.5-5.0) g/dL Urine Color (Yellow) Urine Appearance (Clear) Urine pH (4.6-8.0) Ur Specific [place] (1.005-1.030) Urine Protein (Negative) Urine Glucose (UA) (Negative) mg/dL Urine Ketones (Negative) Urine Blood (Negative) Urine Nitrite (Negative) Urine Bilirubin (Negative) Urine Urobilinogen (0.2) mg/dL Ur Leukocyte Esterase (Negative) U Hyaline Cast (Auto) (0-2) /LPF Urine Microscopic RBC (0-5) /HPF Urine Microscopic WBC (0-5) /HPF Ur Epithelial Cells (None Seen) /HPF Urine Bacteria (None Seen) /HPF Urine Culture Reflexed (NO) Influenza Type A Ag (NEGATIVE) Influenza Type B Ag (NEGATIVE) RSV (PCR) (Negative) SARS-CoV-2 (PCR) (NEGATIVE) 07/22/22 Range/Units 08:06 WBC 10.5 (4.0-10.5) x10^3/uL RBC 3.91 L (4.1-5.6) x10^6/uL Hgb 11.7 L (12.5-18.0) g/dL Hct 36.5 L (42-50) % MCV 93.4 (78-100) fL MCH 29.9 (26-32) pg MCHC 32.1 (32-36) g/dL RDW 16.9 H (11.5-14.0) % Plt Count 235 (150-450) x10^3/uL MPV 9.8 (7.5-11.0) fL Gran % 83.6 H (36.0-66.0) % Immature Gran % (Auto) 0.5 H (0.00-0.4) % Nucleat RBC Rel Count 0.0 (0.00-0.1) % Eos # (Auto) 0.01 (0-0.5) x10^3/uL Immature Gran # (Auto) 0.05 H (0.00-0.03) x10^3u/L Absolute Lymphs (auto) 0.97 L (1.0-4.6) x10^3/uL Absolute Monos (auto) 0.64 (0.0-1.3) x10^3/uL Absolute Nucleated RBC 0.00 (0.00-0.01) x10^3u/L Lymphocytes % 9.3 L (24.0-44.0) % Monocytes % 6.1 (0.0-12.0) % Eosinophils % 0.1 (0.00-5.0) % Basophils % 0.4 (0.0-0.4) % Absolute Granulocytes 8.76 H (1.4-6.9) x10^3/uL Basophils # 0.04 (0-0.4) x10^3/uL PT (9.4-12.5) SECONDS INR (0.8-3.0) D-Dimer (0.0-0.50) mg/L Sodium (137-145) mmol/L Potassium (3.5-5.1) mmol/L Chloride (98-107) mmol/L Carbon Dioxide (22-30) mmol/L Anion Gap (5-15) MEQ/L BUN (9-20) mg/dL Creatinine (0.66-1.25) mg/dL Estimated GFR ML/MIN Glucose (74-106) mg/dL Lactic Acid (0.4-2.0) Calcium (8.4-10.2) mg/dL Total Bilirubin (0.2-1.3) mg/dL AST (17-59) U/L ALT (0-50) U/L Alkaline Phosphatase (38-126) U/L Troponin I (0.000-0.034) ng/mL NT-Pro-B Natriuret Pep (0-1800) pg/mL Serum Total Protein (6.3-8.2) g/dL Albumin (3.5-5.0) g/dL Urine Color (Yellow) Urine Appearance (Clear) Urine pH (4.6-8.0) Ur Specific [place] (1.005-1.030) Urine Protein (Negative) Urine Glucose (UA) (Negative) mg/dL Urine Ketones (Negative) Urine Blood (Negative) Urine Nitrite (Negative) Urine Bilirubin (Negative) Urine Urobilinogen (0.2) mg/dL Ur Leukocyte Esterase (Negative) U Hyaline Cast (Auto) (0-2) /LPF Urine Microscopic RBC (0-5) /HPF Urine Microscopic WBC (0-5) /HPF Ur Epithelial Cells (None Seen) /HPF Urine Bacteria (None Seen) /HPF Urine Culture Reflexed (NO) Influenza Type A Ag (NEGATIVE) Influenza Type B Ag (NEGATIVE) RSV (PCR) (Negative) SARS-CoV-2 (PCR) (NEGATIVE) - Progress Progress: improved, re-examined Air Movement: good Progress Note: 07/22/22 08:02 Reviewed outside records from [facility] and [facility] for cardiac Hx confirmations and recent records. These are reviewed consistent with Hx given, low EF 10-20% . Reviewed Echocardiograph showing cardiomyopathy with EF 20% from May 10 from here read by press feeder Dr. Tirado. Compared EKG to previous from Jul. Paced rythym/no change. ORdered, reviewed and discussed with pt CBC, D DIMer, COvid/Flu/RSV tests, CXR, CMP, Trops, INR, CXR, EKG, BNP. 07/22/22 08:36 Repeat CXR compared to one ready by radiologist on Jul showing CHF, Cardiomegally and infiltrates/congestion similar to that study today. 07/22/22 09:42 Trop is trending slightly more than Jul from 0.035 to 0.41 today. and BNP much more elevated at 26,000 vs 13,000 Discussed with pt ( including advised him INR is up now 3.1) and will consult Dr. Tirado or his service to discuss these findings and trend in trops and BNP Call placed to Steel Post Installer Supervisor - messaGE LEFT AND THIS MAY TAKE SOME TIME ON THE RECALL. Dr. Tirado responded and feels the trop elevation not concerning and that it is an interaction between the RSV and his underlying CHF that is chronic. He does feel that we could observe him here for resolution of the RSV and accomplish this here, and just adjust meds some for a few days here or home, but leaves the option open for transfer to hospitalist at , if still desired. Consulted Dr. Brown, discussed clinical appearance which is quite good with normal pulse ox , no CP, and on room air able to have conversation with long sentences without symptoms also explained that pt wants to secure his Pet at home with contractor buyer prior to any admission , and we all agree that the patient should be clinically OK to manage with increase of his meds a few days and return if any further symptoms or concerns. Discussed also with pt and he wishes to be Discharge home with outpt follow-up rather than admission anyway - he has been advised that there could be an evolving cardiac or cardiovascular condition with serious complications or , even though things look good clinically right now - pt is aware of risk including cardiac arrest or other cardiovascular event including and has the mental status and capacity to make this choice. 07/22/22 11:08 07/22/22 11:16 Dr. Brown requests IV lasix x 1 20 and then increase the lasix to 60 BID and pt agrees to this after discussion. Dr. Brown will see him in office Monday. Blood Culture(s) Obtained: No Antibiotics given: No Discussed with Dr.: Soledad Will see patient in: office Counseled pt/family regarding: lab results, diagnosis, need for follow-up, rad results - Departure Departure Disposition: Home Clinical Impression: Chronic kidney disease, stage 3, RSV with increasing BNP , Dyspnea, Renal insufficiency, slight elevation INR Condition: Good Critical Care Time: No Referrals: [facility] [Primary Care Provider] - Follow up/PCP as directed Instructions: Shortness of Breath (Dyspnea) (DC), Heart Failure, Adult (DC), Respiratory Syncytial Virus, Adult (DC), What to Do When Your INR Is Too High Additional Instructions: Your INR was slightly high at 3.15 so you should temporarily cut back on the dose and discuss with the coumadin clinic. Increase your lasix to 60 mg twice a day and see your Monday to re-assess. Since there still may be an evolving cardiac condition, or an interaction of your CHF with the RSV, return meantime if any symptoms of chest pain or shortness of breath of other concerns.
[2022-07-22 08:07] LABS: Absolute Neutrophil Ct (ANC) 8.76 x10^3/uL (1.4-6.9); BASOPHIL % 0.4 % (0.0-0.4); Basophil (Absolute #) 0.04 x10^3/uL (0-0.4); Eosinophil % 0.1 % (0.00-5.0); Eosinophil (Absolute #) 0.01 x10^3/uL (0-0.5); Hematocrit 36.5 % (42-50); Hemoglobin 11.7 g/dL (12.5-18.0); IMMATURE GRAN # 0.05 x10^3u/L (0.00-0.03); IMMATURE GRAN % 0.5 % (0.00-0.4); Lymphocyte (Absolute #) 0.97 x10^3/uL (1.0-4.6); Lymphocytes % 9.3 % (24.0-44.0); Mean Cell Volume 93.4 fL (78-100); Mean Corpuscular Hemoglobin 29.9 pg (26-32); Mean Corpuscular Hgb Concent. 32.1 g/dL (32-36); Mean Platelet Volume 9.8 fL (7.5-11.0); Monocyte (Absolute #) 0.64 x10^3/uL (0.0-1.3); Monocytes % 6.1 % (0.0-12.0); Neutrophil % 83.6 % (36.0-66.0); Platelet Count 235 x10^3/uL (150-450); Red Blood Count 3.91 x10^6/uL (4.1-5.6); Red Cell Distribution Width 16.9 % (11.5-14.0); White Blood Count 10.5 x10^3/uL (4.0-10.5)
[2022-07-22 08:26] LABS: D-DIMER QUANTITATIVE 0.5 mg/L (0.0-0.50); INR 3.15 (0.8-3.0); PROTIME 30.1 SECONDS (9.4-12.5)
[2022-07-22 08:34] LABS: ALBUMIN 4.3 g/dL (3.5-5.0); ANION GAP 16.3 MEQ/L (5-15); BILIRUBIN,TOTAL 0.8 mg/dL (0.2-1.3); Calcium 8.8 mg/dL (8.4-10.2); Creatinine 1 2.92 mg/dL (0.66-1.25); EST GLOMERULAR FILTRATION RATE 22.3 ML/MIN; Total Protein 7.5 g/dL (6.3-8.2)
[2022-07-22 08:47] LABS: INFLUENZA A NEGATIVE (NEGATIVE); INFLUENZA B NEGATIVE (NEGATIVE); SARS-CoV-2 Xpert Express NEGATIVE (NEGATIVE)
[2022-07-22 08:49] LABS: RESPIRATORY SYNCTIAL VIRUS POSITIVE (Negative)
--- NOTE | 2022-07-22 09:12 | XRAY ---
Indication: Short of breath and cough. Comparison: July 20, 2022 PA/lateral chest again demonstrates cardiomegaly with left AICD and minimal left base subsegmental atelectasis/scarring. No new/acute cardiopulmonary abnormalities.
[2022-07-22 10:21] LABS: Appearance Clear (Clear); Bilirubin Negative (Negative); Blood Negative (Negative); Glucose, Urine >=1000 mg/dL (Negative); Ketones Negative (Negative); Leukocyte Esterase Negative (Negative); Nitrite Negative (Negative); Protein,Urine Dip Negative (Negative); Urobilinogen 0.2 mg/dL (0.2)
[2022-07-22 10:34] VITALS: O2SAT 96
[2022-07-22 10:35] LABS: Bacteria None Seen /HPF (None Seen); Epithelial Cells None Seen /HPF (None Seen); Hyaline Casts NONE SEEN /LPF (0-2); RBC 0-2 /HPF (0-5)
[2022-07-22 10:39] LABS: ADD URINE CULTURE? YES (NO)
[2022-07-22] MEDS ORDERED: Lasix 20 MG/2 ML ONE (11:12)
[2022-07-22] MEDS ORDERED: Lasix 20 MG/2 ML IV STA (11:24)
[2022-07-22 11:25] VITALS: BP 118/74; PULSE 81
== END 2022-07-22 11:27 | disposition home or self-care (01) ==
LOC: ED 07:26
DX: J06.9 Acute upper respiratory infection, unspecified (principal); B97.4 Respiratory syncytial virus as the cause of diseases classified elsewhere; R79.89 Other specified abnormal findings of blood chemistry; E11.22 Type 2 diabetes mellitus with diabetic chronic kidney disease; N18.30 Chronic kidney disease, stage 3 unspecified; N28.9 Disorder of kidney and ureter, unspecified; R06.00 Dyspnea, unspecified; R07.9 Chest pain, unspecified; R60.0 Localized edema; E78.5 Hyperlipidemia, unspecified; Z79.85 Long-term (current) use of injectable non-insulin antidiabetic drugs; Z79.84 Long term (current) use of oral hypoglycemic drugs; Z79.01 Long term (current) use of anticoagulants; Z79.899 Other long term (current) drug therapy; Z20.828 Contact with and (suspected) exposure to other viral communicable diseases
CPT/HCPCS: 0241U; 36000; 36415; 71046; 80053; 81001; 83605; 83880; 84484; 85025; 85379; 85610; 87086; 93005; 93041; 94640; 96374; 96375; 99284; J1940; J2930; A9270-GY

== ENCOUNTER 2022-08-28 10:54 | Emergency (ER) | payer MEDICARE ==
[2022-08-28 11:19] VITALS: BP 106/64; PULSE 68; O2SAT 97
--- NOTE | 2022-08-28 11:35 | ERPHSYRPT ---
- History of Present Illness Time Seen by Provider: 08/28/22 11:29 Source: patient Exam Limitations: no limitations Patient Subjective Stated Complaint: nose bleeding last night and leg bleeding last night Triage Nursing Assessment: pt to ED c/o nose bleeding when he wiped it last night. pt states he noticed it when he was waking up this morning. also this morning pt noticed that there was some blood stains on his socks. pt does take daily warfarin. pt has no complaints at this time and is not actively bleeding. Physician History: Patient is 77-year-old male who is taking warfarin for his heart problems recently his dose was increased to 23 mg because of his INR was low started having a nosebleed I also scab came out of his left lower leg and also started bleeding so he came to the emergency room. In the emergency room his nose bleeding has stopped but the bleeding from the open area from the leg was still active. He denies any other symptoms. Timing/Duration: abrupt onset ENT Location: nose (bleeding,) Associated Symptoms: other (minor oozing from his left leg superficial wound) Allergies/Adverse Reactions: gemfibrozil Allergy (Mild, Verified 08/28/22 11:06) skin pigmentation change, "turns me orange." Home Medications: Amiodarone HCl 100 mg PO DAILY 05/28/19 [History] Aspirin 81 mg PO DAILY 05/28/19 [History] Atorvastatin Calcium 40 mg PO HS 05/28/19 [History] Carvedilol [Coreg] 6.25 mg PO BID 09/24/20 [History] Furosemide [Lasix] 40 mg PO BID 09/24/20 [History] Linagliptin [Tradjenta] 5 mg PO DAILY 09/24/20 [History] Empagliflozin [Jardiance] 25 mg PO DAILY 08/26/21 [History] Warfarin Sodium 2.5 mg PO SUTUTHSA 08/26/21 [History] Allopurinol 300 mg [Zyloprim 300 mg] 300 mg PO DAILY 10/08/21 [History] Cholecalciferol (Vitamin D3) [Vitamin D] 25 mcg PO DAILY 10/08/21 [History] Docusate Sodium 100 mg [Docusate Sodium 100 MG] 100 mg PO DAILY 10/08/21 [History] Levothyroxine Sodium 100 Mcg [Synthroid 100 Mcg] 100 mcg PO DAILY 05/05/22 [History] Semaglutide [Ozempic] 0.5 mg SQ SA 05/05/22 [History] Hx Tetanus, Diphtheria Vaccination/Date Given: Yes Hx Influenza Vaccination/Date Given: Yes Hx Pneumococcal Vaccination/Date Given: Yes Immunizations Up to Date: Yes Travel Risk - International Travel Have you traveled outside of the country in past 3 weeks: No - Coronavirus Screening Are you exhibiting any of the following symptoms?: No Close contact with a COVID-19 positive Pt in past 14-21 Days: Yes - Vaccine Status Have you recieved a Covid-19 vaccination: Yes 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 pt already d/c and don't know 1st vaccination date to fill in - Review of Systems Constitutional: No Fever, No Chills Eyes: No Symptoms Ears, Nose, & Throat: Other (minimal nose bleeding) Respiratory: No Cough, No Dyspnea Cardiac: No Chest Pain, No Edema, No Syncope Abdominal/Gastrointestinal: No Abdominal Pain, No Nausea, No Vomiting, No Diarrhea Genitourinary Symptoms: No Dysuria Musculoskeletal: No Back Pain, No Neck Pain Skin: Other (mild oozing from left leg wound), No Rash Neurological: No Dizziness, No Focal Weakness, No Sensory Changes Psychological: No Symptoms Endocrine: No Symptoms All Other Systems: Reviewed and Negative - Past Medical History Pertinent Past Medical History: Yes Cardiac History: Coronary Artery Disease, High Cholesterol, Myocardial Infarction (MD) Endocrine Medical History: Diabetes Type II History: Renal Disease - Past Surgical History Past Surgical History: Yes Cardiac: Internal Defibrillator, Pacemaker, Other Other Surgical History: Tonsillectomy, pacemaker/defib - Social History Smoking Status: Former smoker Exposure to second hand smoke: No Alcohol Use: None Drug Use: none Patient Lives Alone: Yes - Nursing Vital Signs Nursing Vital Signs: Initial Vital Signs Temperature 97.5 F 08/28/22 11:06 Pulse Rate 68 08/28/22 11:06 Respiratory Rate 20 08/28/22 11:06 Blood Pressure 106/64 08/28/22 11:06 O2 Sat by Pulse Oximetry 97 08/28/22 11:06 Pain Scale Pain Intensity 0 - Physical Exam General Appearance: no apparent distress, alert Eye Exam: bilateral eye: PERRL, EOMI Nasal Exam: dried blood Throat Exam: pharynx normal, moist mucus membranes, No tonsillar exudate Neck Exam: supple Cardiovascular/Respiratory Exam: normal breath sounds, regular rate/rhythm Abdominal Exam: non-tender, soft Neurologic Exam: alert, oriented x 3, sensation nml, No motor deficits Skin Exam: normal color, warm, dry, other (minimal oozing from anterior and posterior area ) SpO2: 97 Procedures - Laceration/Wound Repair Left Calf Time of Procedure: 11:34 Wound Location: Left, lower leg Wound Explored: clean Layer Closure?: No Sterile Dressing Applied?: Yes - Course Nursing assessment & vital signs reviewed: Yes - Progress Progress: improved Progress Note: 08/28/22 11:35 Bilateral nasal packing applied with a cotton ball anteriorly. Patient was also educated how to pack then cotton balls in his nose. At this point of time patient is advised that there is no more nosebleed but we will keep the cotton ball in for at least 1 hour. Afterwards she can remove the cotton ball if he continues to bleed then he can put the cotton ball again. The wound on the leg was dressed with a pressure dressing he is advised to keep it on for 24 hours. He is also advised to get his prothrombin time checked tomorrow and advised to adjust warfarin dose accordingly. Patient is strongly advised to follow-up with his primary care physician tomorrow. If nosebleed continues he can come back to the emergency room. 08/28/22 11:39 Counseled pt/family regarding: diagnosis, need for follow-up Medical Desision Making - Discussion of managment Reviewed:: Need for additional workup Agreed on:: Treatment plan, need for follow-up - Diagnostic Testing Diagnostic test were ordered, analyzed, and reviewed by me: No - Risk of complications Low Risk: Low risk of morbidity from additional dx testing or treatment The pt has a high risk of morbidity or mortality based on: Drug therapy requiring intensive monitoring for toxicity - Departure Departure Disposition: Home Clinical Impression: Arterial nasal hemorrhage, Bleeding from wound, Warfarin-induced coagulopathy Condition: Stable Critical Care Time: Yes Critical Care Time(excluding separately billable procedures): Critical 30-74 mins Referrals: [facility] [Primary Care Provider] - Follow up/PCP as directed Instructions: Nosebleeds (DC), Taking Care of Cuts, Scrapes, and Puncture Wounds, Wound Care (DC) Additional Instructions: Bilateral nasal packing applied with a cotton ball anteriorly. Patient was also educated how to pack then cotton balls in his nose. At this point of time chris vences is advised that there is no more nosebleed but we will keep the cotton ball in for at least 1 hour. Afterwards He can remove the cotton ball if he continues to bleed then he can put the cotton ball again. The wound on the leg was dressed with a pressure dressing he is advised to keep it on for 24 hours. He is also advised to get his prothrombin time checked tomorrow and advised to adjust warfarin dose accordingly. Patient is strongly advised to follow-up with his primary care physician tomorrow. If nosebleed continues he can come back to the emergency room. Discharge/Care Plan RHODA BOWDEN was seen on 08/28/22 in the Emergency Room. The patient was counseled regarding Diagnosis,Lab results, Imaging studies, need for follow up and when to return to the Emergency Room. Prescriptions given: Discharge Note I have spoken with the patient and/or caregivers. I have explained the patient's condition, diagnosis and treatment plan based on the information available to me at this time. I have answered the patient's and/or caregiver's questions and a ddressed any concerns. The patient and/or caregivers have as good understanding of the patient's diagnosis, condition and treatment plan as can be expected at this point. The vital signs have been stable. The patient's condition is stable and appropriate for discharge from the emergency department. The patient will pursue further outpatient evaluation with the primary care physician or other designated or consulting physician as outlined in the discharge instructions. The patient and/or caregivers are agreeable to this plan of care and follow-up instructions have been explained in detail. The patient and/or caregivers have received these instruction. The patient/and or caregivers are aware that any significant change in condition or worsening of symptoms should prompt an immediate return to this or the closest emergency department or call 911. RHODA BOWDEN was seen on 08/28/22 n the Emergency Room. At that time you were treated for an emergent condition, during your visit Laboratory, Radiology and/or other procedures may have been ordered. It is very important that you follow-up with your Primary Care Physician [facility] within the next 24-48 hours to review your Emergency Room visit and the final results of testing that was ordered. Some test results such as Urine Cultures, Blood Cultures, and other cultures if ordered will not be finalized for 24-48 hours. If you do not have a Primary Care Provider please call the medical records department at [phone] ext [phone] to obtain a copy of your results or you may sign into our patient portal to obtain these results by visiting us @ [email or web address] and completing the following steps: 1. Click on the Patient Portal link 2. Click the Patient Self Enrollment Link to complete the enrollment form and entering your 3. Once the enrollment form is completed you will receive an email with a temporary ID and password at the email address you provided. 4. Next choose a user name and password. Your user name must be at least 4 characters long and your password must be at least 4 characters long. 5. Choose a security question from the list and provide your answer to the question. If you already have signed into the Health Portal you may access your Health Care Information 09/01 by the following steps: 1. Login to our website @ [email or web address] 2. Enter your original user name and password. FAQS The [facility] Health Portal is an online tool that contains your Lab Results, Radiology Reports, Visit History, Discharge Instructions and Health Summary Lab and Radiology Results will not be available for 72 hours on the portal. The Portal is a secure site, passwords are encryted and URLs are re-written so they cannot be copied and pasted. You and authorized family members are the only ones who can access your Portal. Also there is a timeout feature that protects your information if you leave the Portal page open. If you have technical difficulty please use the Contact Us link on the page this will allow you to submit any questions you have regarding the Portal or you may contact the Medical Record Department at [phone] ext [phone].
== END 2022-08-28 11:53 | disposition home or self-care (01) ==
LOC: ED 10:54
DX: R04.0 Epistaxis (principal); D68.32 Hemorrhagic disorder due to extrinsic circulating anticoagulants; T45.515A Adverse effect of anticoagulants, initial encounter; E78.5 Hyperlipidemia, unspecified; E11.9 Type 2 diabetes mellitus without complications; Z79.01 Long term (current) use of anticoagulants; Z79.84 Long term (current) use of oral hypoglycemic drugs; Z79.85 Long-term (current) use of injectable non-insulin antidiabetic drugs
CPT/HCPCS: 99281; 99291

== ENCOUNTER 2023-01-14 20:07 | Emergency (ER) | payer MEDICARE ==
--- NOTE | 2023-01-14 20:12 | ERPHSYRPT ---
- History of Present Illness Time Seen by Provider: 01/14/23 20:11 Source: patient Exam Limitations: no limitations Physician History: This is a 77-year-old white male who has a history of atrial fibrillation, CHF is on amiodarone and Coumadin. He also has hyperlipidemia. He presents to the emergency room with bleeding from a skin tear that he sustained Monday prior to this evaluation. He is being followed in the Coumadin clinic and his INR been in over 4 and his Coumadin was stopped on the prior to this evaluation. He had a INR drawn today which was 3.3. He was seen in outpatient clinic yesterday because of the skin tear that was present and bleeding/oozing from the site. Gauze and Tegaderm was placed overlying the site. This evening, he noticed trickle of blood from the site and therefore he came to emergency room for evaluation. Timing/Duration: today Quality: other Location: extremities (No pain) Possible Causes: other (Oozing from a skin tear site) Associated Symptoms: other Allergies/Adverse Reactions: gemfibrozil Allergy (Mild, Verified 01/14/23 20:13) skin pigmentation change, "turns me orange." Home Medications: Amiodarone HCl 100 mg PO DAILY 05/28/19 [History] Aspirin 81 mg PO DAILY 05/28/19 [History] Atorvastatin Calcium 40 mg PO HS 05/28/19 [History] Carvedilol [Coreg] 6.25 mg PO BID 09/24/20 [History] Furosemide [Lasix] 40 mg PO BID 09/24/20 [History] Linagliptin [Tradjenta] 5 mg PO DAILY 09/24/20 [History] Empagliflozin [Jardiance] 25 mg PO DAILY 08/26/21 [History] Warfarin Sodium 2.5 mg PO SUTUTHSA 08/26/21 [History] Allopurinol 300 mg [Zyloprim 300 mg] 300 mg PO DAILY 10/08/21 [History] Cholecalciferol (Vitamin D3) [Vitamin D] 25 mcg PO DAILY 10/08/21 [History] Docusate Sodium 100 mg [Docusate Sodium 100 MG] 100 mg PO DAILY 10/08/21 [History] Levothyroxine Sodium 100 Mcg [Synthroid 100 Mcg] 100 mcg PO DAILY 05/05/22 [History] Semaglutide [Ozempic] 0.5 mg SQ SA 05/05/22 [History] Hx Tetanus, Diphtheria Vaccination/Date Given: Yes Hx Influenza Vaccination/Date Given: Yes Hx Pneumococcal Vaccination/Date Given: Yes Travel Risk - International Travel Have you traveled outside of the country in past 3 weeks: No - Coronavirus Screening Are you exhibiting any of the following symptoms?: No Close contact with a COVID-19 positive Pt in past 14-21 Days: No - Vaccine Status Have you recieved a Covid-19 vaccination: Yes 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 pt already d/c and don't know 1st vaccination date to fill in - Review of Systems Constitutional: No Symptoms Eyes: No Symptoms Ears, Nose, & Throat: No Symptoms Respiratory: No Symptoms Cardiac: No Symptoms Abdominal/Gastrointestinal: No Symptoms Genitourinary Symptoms: No Symptoms Musculoskeletal: No Symptoms Skin: Other (Venous oozing from skin tear site left forearm) Neurological: No Symptoms Psychological: No Symptoms Endocrine: No Symptoms Hematologic/Lymphatic: No Symptoms Immunological/Allergic: No Symptoms All Other Systems: Reviewed and Negative - Past Medical History Pertinent Past Medical History: Yes Cardiac History: Coronary Artery Disease, High Cholesterol, Myocardial Infarction (SD) Endocrine Medical History: Diabetes Type II History: Renal Disease - Past Surgical History Past Surgical History: Yes Cardiac: Internal Defibrillator, Pacemaker, Other Other Surgical History: Tonsillectomy, pacemaker/defib - Social History Smoking Status: Former smoker Exposure to second hand smoke: No Alcohol Use: None Drug Use: none Patient Lives Alone: Yes - Nursing Vital Signs Nursing Vital Signs: Initial Vital Signs Temperature 98.2 F 01/14/23 20:16 Pulse Rate 77 01/14/23 20:16 Respiratory Rate 16 01/14/23 20:16 Blood Pressure 93/75 01/14/23 20:16 O2 Sat by Pulse Oximetry 99 01/14/23 20:16 Pain Scale Pain Intensity 0 - Physical Exam General Appearance: no apparent distress, alert, anxiety, thin Eye Exam: PERRL/EOMI, eyes nml inspection Ears, Nose, Throat Exam: normal ENT inspection, moist mucous membranes Neck Exam: normal inspection, non-tender, supple, full range of motion Respiratory Exam: airway intact, No chest tenderness, No respiratory distress Rectal Exam: not done Back Exam: normal inspection, normal range of motion, No CVA tenderness, No vertebral tenderness Extremity Exam: normal inspection, normal range of motion, pelvis stable, other (Venous oozing from skin tear site from the left upper extremity prior to arrival. 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 Previously placed dressing of gauze and Tegaderm was removed. The area was cleaned dried. There is no evidence of any venous or arterial bleeding from this skin tear site. 2 Surgicel 2 x 3 cm gauze were placed overlying this skin tear site followed by nonstick gauze 4 x 4 gauze, Tegaderm and an Luis A wrap to create a pressure dressing. No complications the patient tolerated well. 01/14/23 20:30 This patient's medical issue is of low complexity. Level of complexity in the work-up performed based on review of the patient's past medical history, review the patient's medication list, review of the patient's drug allergy list, history of present illness, physical findings on examination. No laboratory or radiographic studies are necessary in this patient. Patient is to keep the current dressing in place until the morning of 01/16/2023. He will have his INR repeated. He can take the dressing down at that time and wash the site with soap and water. He is not to scrub the site. He is to blot dry use a hairdryer and he redressed the site daily thereafter with nonstick gauze Counseled pt/family regarding: diagnosis, need for follow-up, rad results Medical Desision Making - Diagnostic Testing Diagnostic test were ordered, analyzed, and reviewed by me: No - Risk of complications Low Risk: Low risk of morbidity from additional dx testing or treatment - Departure Departure Disposition: Home Clinical Impression: Elevated INR, Skin tear, Warfarin-induced coagulopathy Condition: Stable Critical Care Time: No Referrals: TANISHA CONTRERAS MD [Primary Care Provider] - Follow up/PCP as directed Additional Instructions: Keep current dressing in place until the morning of 01/16/2023 when you can remove the dressing, wash the site gently with soap and water. Blot dry or use a wheelchair van operator first responder to dry the site and then rebandaged with a nonstick gauze. Follow- up on 01/16/2023 at your scheduled INR recheck. Call your primary care provider on 01/16/2023 to make arranges for follow-up appointment and further evaluation management.
[2023-01-14 20:25] VITALS: RESP 16; TEMP 98.2
[2023-01-14 20:43] VITALS: BP 94/63; PULSE 65; O2SAT 97
== END 2023-01-14 20:46 | disposition home or self-care (01) ==
LOC: ED 20:07
DX: D68.32 Hemorrhagic disorder due to extrinsic circulating anticoagulants (principal); T45.515A Adverse effect of anticoagulants, initial encounter; S51.812A Laceration without foreign body of left forearm, initial encounter; I48.91 Unspecified atrial fibrillation; E78.5 Hyperlipidemia, unspecified; E11.9 Type 2 diabetes mellitus without complications; Z79.01 Long term (current) use of anticoagulants; Z79.84 Long term (current) use of oral hypoglycemic drugs; Z79.85 Long-term (current) use of injectable non-insulin antidiabetic drugs; Z79.899 Other long term (current) drug therapy
CPT/HCPCS: 99282

== ENCOUNTER 2023-01-26 09:29 | Observation (INO) | payer MEDICARE ==
--- NOTE | 2023-01-26 09:31 | ERPHSYRPT ---
- History of Present Illness Time Seen by Provider: 01/26/23 09:31 Source: patient Exam Limitations: no limitations Physician History: This is a 77-year-old white male patient who presents with left lower extremity swelling and redness. Patient was being treated for cellulitis and was on Keflex. However that medication was stopped because of a rising INR. Patient is on Coumadin and amiodarone for atrial fibrillation. He has a history of hyperlipidemia, diabetes, hypothyroidism, coronary artery disease (pacemaker/defibrillator) chronic renal disease and CHF. He presents to the emergency department somewhat disheveled with very dirty unclean feet and ankles. He denies chest pain. He denies shortness of breath. Method of Injury: other (No specific injury but swelling of his left ankle and foot) Occurred: other (Worsening over several days) Quality: constant, aching Severity of Pain-Max: mild Severity of Pain-Current: mild Lower Extremities Pain: foot: left, ankle: left Modifying Factors: Improves With: movement Associated Symptoms: other Allergies/Adverse Reactions: gemfibrozil Allergy (Mild, Verified 01/26/23 09:47) skin pigmentation change, "turns me orange." Home Medications: Amiodarone HCl 100 mg PO DAILY 05/28/19 [History] Aspirin 81 mg PO DAILY 05/28/19 [History] Atorvastatin Calcium 40 mg PO HS 05/28/19 [History] Carvedilol [Coreg] 6.25 mg PO BID 09/24/20 [History] Linagliptin [Tradjenta] 5 mg PO DAILY 09/24/20 [History] Empagliflozin [Jardiance] 25 mg PO DAILY 08/26/21 [History] Warfarin Sodium See Rx Instructions .ROUTE .COMPLEX 08/26/21 [History] Allopurinol 300 mg [Zyloprim 300 mg] 300 mg PO DAILY 10/08/21 [History] Cholecalciferol (Vitamin D3) [Vitamin D] 25 mcg PO DAILY 10/08/21 [History] Docusate Sodium 100 mg [Docusate Sodium 100 MG] 100 mg PO DAILY PRN 10/08/21 [History] Levothyroxine Sodium 100 Mcg [Synthroid 100 Mcg] 100 mcg PO DAILY 05/05/22 [History] Semaglutide [Ozempic] 0.5 mg SQ SA 05/05/22 [History] Furosemide 40 mg [Lasix 40 MG] 3 tab PO DAILY 01/26/23 [History] Hx Tetanus, Diphtheria Vaccination/Date Given: Yes Hx Influenza Vaccination/Date Given: Yes Hx Pneumococcal Vaccination/Date Given: Yes Travel Risk - International Travel Have you traveled outside of the country in past 3 weeks: No - Coronavirus Screening Are you exhibiting any of the following symptoms?: No Close contact with a COVID-19 positive Pt in past 14-21 Days: No - Vaccine Status Have you recieved a Covid-19 vaccination: Yes [employer]: Moderna - Vaccination Dates Date of 2cond Vaccination (if applicable): unknown Comment: [facility]. pt already d/c and don't know 1st vaccination date to fill in - Review of Systems Constitutional: No Symptoms Eyes: No Symptoms Ears, Nose, & Throat: No Symptoms Respiratory: No Symptoms Cardiac: No Symptoms Abdominal/Gastrointestinal: No Symptoms Genitourinary Symptoms: No Symptoms Musculoskeletal: No Symptoms Skin: Cellulitis (Left ankle) Neurological: No Symptoms Psychological: No Symptoms Endocrine: No Symptoms Hematologic/Lymphatic: No Symptoms Immunological/Allergic: No Symptoms All Other Systems: Reviewed and Negative - Past Medical History Pertinent Past Medical History: Yes Cardiac History: Coronary Artery Disease, High Cholesterol, Myocardial Infarction (MS) Endocrine Medical History: Diabetes Type II History: Renal Disease - Past Surgical History Past Surgical History: Yes Cardiac: Internal Defibrillator, Pacemaker, Other Other Surgical History: Tonsillectomy, pacemaker/defib - Social History Smoking Status: Former smoker Exposure to second hand smoke: No Alcohol Use: None Drug Use: none Patient Lives Alone: Yes - Nursing Vital Signs Nursing Vital Signs: Initial Vital Signs Temperature 97 F 01/26/23 09:33 Pulse Rate 85 01/26/23 09:33 Respiratory Rate 16 01/26/23 09:33 Blood Pressure 107/78 01/26/23 09:33 O2 Sat by Pulse Oximetry 96 01/26/23 09:33 Pain Scale Pain Intensity 4 - Physical Exam General Appearance: no apparent distress, alert Eyes, Ears, Nose, Throat Exam: normal ENT inspection, moist mucous membranes Neck Exam: normal inspection, non-tender, supple, full range of motion Cardiovascular/Respiratory Exam: chest non-tender, normal breath sounds, regular rate/rhythm, heart sounds normal, no respiratory distress Gastrointestinal/Abdominal Exam: non-tender Back Exam: normal inspection, normal range of motion, No CVA tenderness, No vertebral tenderness Hips Exam: bilateral: non-tender, normal inspection, normal range of motion, no evidence of injury Legs Exam: bilateral leg: non-tender, normal inspection, normal range of motion, no evidence of injury Knees Exam: bilateral knee: non-tender, normal inspection, normal range of motion, no evidence of injury Ankle Exam: right ankle: non-tender, normal inspection, normal range of motion, no evidence of injury, bilateral ankle: soft tissue tenderness (Anterior left lower leg/below the knee), swelling (In the distribution of chronic venous stasis pigmentation there is redness and cellulitis present) Foot Exam: left foot: swelling, bilateral foot: non-tender, normal range of motion, no evidence of injury, other (Bilateral feet with deformed toes) Neuro/Tendon Exam: normal motor functions, normal tendon functions, no evidence tendon injury Mental Status Exam: alert, oriented x 3, cooperative Skin Exam: other (Cellulitis in the distribution of the chronic venous stasis pigmentation left lower leg below the knee) SpO2 Interpretation: normal O2 Delivery: Room Air - Course Nursing assessment & vital signs reviewed: Yes EKG Interpreted by Me: RATE (81), Other (No acute ischemic changes on today's twelve-lead EKG. There is ventricular paced rhythm. There is biventricular paced rhythm as well.) Ordered Tests: Active Orders 24 hr Category Date Time Status IV Insertion STAT Care 01/26/23 10:02 Active Wound Care ROUTINE Care 01/26/23 10:02 Active ARTERIAL UNILAT/LTD LOWER EXT [US] Stat Exams 01/26/23 10:00 Completed FOOT (MINIMUM 3 VIEWS) Stat Exams 01/26/23 09:59 Completed BLOOD CULTURE Stat Lab 01/26/23 10:35 Received BNPII [NT PRO BNPII] Stat Lab 01/26/23 10:47 Completed CBC W DIFF Stat Lab 01/26/23 10:21 Completed CMP Stat Lab 01/26/23 10:21 Completed CULTURE,WOUND Stat Lab 01/26/23 10:10 Received Lactic Acid Stat Lab 01/26/23 10:02 Completed PROTIME WITH INR Stat Lab 01/26/23 10:21 Completed Transfer Order Routine Transfer 01/26/23 Ordered Medication Summary Generic Name Dose Route Start Last Admin Trade Name Tito PRN Reason Stop Dose Admin Sodium Chloride 500 mls @ 50 mls/hr 01/26/23 10:30 01/26/23 10:24 Sodium Chloride 0.9% 500 Ml IV 02/25/23 10:29 50 mls/hr .Q10H MICH Administration Ceftriaxone Sodium/Dextrose 1 g in 50 mls @ 100 mls/hr 01/26/23 12:04 Rocephin 1 Gm-D5w 50 Ml Bag IV 01/26/23 12:33 STAT STA Discontinued Medications Generic Name Dose Route Start Last Admin Trade Name Tito PRN Reason Stop Dose Admin Morphine Sulfate 2 mg 01/26/23 10:21 01/26/23 10:25 Morphine Sulfate 2 Mg/Ml Inj IV 01/26/23 10:22 2 mg STAT ONE Administration Morphine Sulfate Confirm 01/26/23 10:22 Morphine Sulfate 2 Mg/Ml Inj Administered 01/26/23 10:23 Dose 2 mg .ROUTE .STK-MED ONE Ondansetron HCl 4 mg 01/26/23 10:21 01/26/23 10:26 Ondansetron Hcl 4 Mg/2 Ml Vial IV 01/26/23 10:22 4 mg STAT ONE Administration Ondansetron HCl Confirm 01/26/23 10:22 Ondansetron Hcl 4 Mg/2 Ml Vial Administered 01/26/23 10:23 Dose 4 mg .ROUTE .STK-MED ONE Lab/Rad Data: Laboratory Result Diagrams 01/26/23 10:21 01/26/23 10:21 Laboratory Results 01/26/23 01/26/23 01/26/23 Range/Units 10:47 10:21 10:21 WBC (4.0-10.5) x10^3/uL RBC (4.1-5.6) x10^6/uL Hgb (12.5-18.0) g/dL Hct (42-50) % MCV (78-100) fL MCH (26-32) pg MCHC (32-36) g/dL RDW (11.5-14.0) % Plt Count (150-450) x10^3/uL MPV (7.5-11.0) fL Gran % (36.0-66.0) % Immature Gran % (Auto) (0.00-0.4) % Nucleat RBC Rel Count (0.00-0.1) % Eos # (Auto) (0-0.5) x10^3/uL Immature Gran # (Auto) (0.00-0.03) x10^3u/L Absolute Lymphs (auto) (1.0-4.6) x10^3/uL Absolute Monos (auto) (0.0-1.3) x10^3/uL Absolute Nucleated RBC (0.00-0.01) x10^3u/L Lymphocytes % (24.0-44.0) % Monocytes % (0.0-12.0) % Eosinophils % (0.00-5.0) % Basophils % (0.0-0.4) % Absolute Granulocytes (1.4-6.9) x10^3/uL Basophils # (0-0.4) x10^3/uL PT 19.2 H (9.4-12.5) SECONDS INR 1.84 D (0.8-3.0) Sodium 134 L (137-145) mmol/L Potassium 3.4 L (3.5-5.1) mmol/L Chloride 97 L (98-107) mmol/L Carbon Dioxide 20 L (22-30) mmol/L Anion Gap 20.0 H (5-15) MEQ/L BUN 75 H (9-20) mg/dL Creatinine 3.21 H (0.66-1.25) mg/dL Estimated GFR 20.0 ML/MIN Glucose 169 H (74-106) mg/dL Lactic Acid (0.4-2.0) Calcium 8.2 L (8.4-10.2) mg/dL Total Bilirubin 2.50 H (0.2-1.3) mg/dL AST 40 (17-59) U/L ALT 29 (0-50) U/L Alkaline Phosphatase 310 H (38-126) U/L NT-Pro-B Natriuret Pep > 45360 (<300) pg/mL Serum Total Protein 6.8 (6.3-8.2) g/dL Albumin 3.4 L (3.5-5.0) g/dL 01/26/23 01/26/23 Range/Units 10:21 10:02 WBC 8.8 (4.0-10.5) x10^3/uL RBC 4.70 (4.1-5.6) x10^6/uL Hgb 13.8 (12.5-18.0) g/dL Hct 42.6 (42-50) % MCV 90.6 (78-100) fL MCH 29.4 (26-32) pg MCHC 32.4 (32-36) g/dL RDW 18.6 H (11.5-14.0) % Plt Count 124 L (150-450) x10^3/uL MPV 11.9 H (7.5-11.0) fL Gran % 86.0 H (36.0-66.0) % Immature Gran % (Auto) 0.5 H (0.00-0.4) % Nucleat RBC Rel Count 0.3 H (0.00-0.1) % Eos # (Auto) 0.05 (0-0.5) x10^3/uL Immature Gran # (Auto) 0.04 H (0.00-0.03) x10^3u/L Absolute Lymphs (auto) 0.68 L (1.0-4.6) x10^3/uL Absolute Monos (auto) 0.45 (0.0-1.3) x10^3/uL Absolute Nucleated RBC 0.03 H (0.00-0.01) x10^3u/L Lymphocytes % 7.7 L (24.0-44.0) % Monocytes % 5.1 (0.0-12.0) % Eosinophils % 0.6 (0.00-5.0) % Basophils % 0.1 (0.0-0.4) % Absolute Granulocytes 7.58 H (1.4-6.9) x10^3/uL Basophils # 0.01 (0-0.4) x10^3/uL PT (9.4-12.5) SECONDS INR (0.8-3.0) Sodium (137-145) mmol/L Potassium (3.5-5.1) mmol/L Chloride (98-107) mmol/L Carbon Dioxide (22-30) mmol/L Anion Gap (5-15) MEQ/L BUN (9-20) mg/dL Creatinine (0.66-1.25) mg/dL Estimated GFR ML/MIN Glucose (74-106) mg/dL Lactic Acid 2.2 H (0.4-2.0) Calcium (8.4-10.2) mg/dL Total Bilirubin (0.2-1.3) mg/dL AST (17-59) U/L ALT (0-50) U/L Alkaline Phosphatase (38-126) U/L NT-Pro-B Natriuret Pep (<300) pg/mL Serum Total Protein (6.3-8.2) g/dL Albumin (3.5-5.0) g/dL - Progress Progress: unchanged, re-examined Progress Note: 01/26/23 11:42 The x-ray of the left foot was interpreted by me and I did not appreciate an acute fracture or dislocation. I reviewed the radiologist's impression and he also says nonacute left foot with chronic features only. The arterial Doppler was interpreted by the radiologist. There is minimal/mild scattered arteriosclerotic disease without critical stenosis or obstruction of the left lower extremity. This patient's medical issue is 1 of high complexity. The level of complexity and the workup performed is based on review of the patient's past medical history, review of the patient's medication list, review the patient's drug allergy list, history of present illness and the physical findings on examination. Workup includes a CBC, CMP, lactic acid, twelve-lead EKG, x-ray of the left foot and arterial Doppler of the left lower extremity. I did not order an venous Doppler to evaluate for DVT. The patient does not have chest pain. Patient does not have shortness of breath and his PT/INRs have been elevated and they have actually been dropping his Coumadin dose because of this. I think the likelihood of a DVT is low. I reviewed the results of the workup. This patient has left lower extremity cellulitis. I am holding on the antibiotics until I speak with the telehospitalist to determine which antibiotic he wants me to place this patient on. 01/26/23 12:[address] Leong, the telehospitalist on today. I reviewed the patient history, physical findings, workup results. We will bring the patient in observation status and treat him for cellulitis. We will start Rocephin 1 g intravenously today. Will repeat CBC, CMP and BNP and gently rehydrate the patient at 50 cc an hour. We will have the wound care nurse evaluate this patient as well. Counseled pt/family regarding: lab results, diagnosis, rad results Medical Desision Making - Discussion of managment Care discussed with:: hospitalist Reviewed:: Test results, Need for additional workup Agreed on:: Treatment plan, place in obs Will see patient: in hospital - Diagnostic Testing Diagnostic test were ordered, analyzed, and reviewed by me: Yes Radiological Interpretation: Interpreted by me, Reviewed by me, Teleradiologist Report - Risk of complications The pt has a high risk of morbidity or mortality based on: Decision regarding hospitilization or escalation of hosp level of care - Departure Clinical Impression: Cellulitis, Chronic renal failure, Elevated brain natriuretic peptide (BNP) level Condition: Stable Critical Care Time: No Referrals: [facility]] - Follow up/PCP as directed
[2023-01-26] MEDS ORDERED: MORPHINE SULFATE 2 MG INJ IV ONE (10:21)
[2023-01-26] MEDS ORDERED: Zofran 4 MG/2 ML VIAL IV ONE (10:21)
[2023-01-26] MEDS ORDERED: Zofran 4 MG/2 ML VIAL ONE (10:22)
[2023-01-26] MEDS ORDERED: Sodium Chloride 0.9% 500 ML 500 ML IV ONE (10:22)
[2023-01-26] MEDS ORDERED: MORPHINE SULFATE 2 MG INJ ONE (10:22)
[2023-01-26] MEDS ORDERED: Sodium Chloride 0.9% 500 ML 500 ML IV SCH (10:30)
--- NOTE | 2023-01-26 10:37 | XRAY ---
Indication: Pain and swelling. Deformity. Comparison: None 3 nonweightbearing views left foot demonstrates osteopenia, marked 1st MTP bunion deformity, moderate 2nd MTP degenerative changes with varus angulation, pes planus, small navicular spur, tiny plantar heel spur, and extensive scattered vascular calcifications. No other bony, articular, or soft tissue abnormalities. Impression: Nonacute left foot with chronic features.
[2023-01-26 10:42] LABS: Absolute Neutrophil Ct (ANC) 7.58 x10^3/uL (1.4-6.9); BASOPHIL % 0.1 % (0.0-0.4); Basophil (Absolute #) 0.01 x10^3/uL (0-0.4); Eosinophil % 0.6 % (0.00-5.0); Eosinophil (Absolute #) 0.05 x10^3/uL (0-0.5); Hematocrit 42.6 % (42-50); Hemoglobin 13.8 g/dL (12.5-18.0); IMMATURE GRAN # 0.04 x10^3u/L (0.00-0.03); IMMATURE GRAN % 0.5 % (0.00-0.4); Lymphocyte (Absolute #) 0.68 x10^3/uL (1.0-4.6); Lymphocytes % 7.7 % (24.0-44.0); Mean Cell Volume 90.6 fL (78-100); Mean Corpuscular Hemoglobin 29.4 pg (26-32); Mean Corpuscular Hgb Concent. 32.4 g/dL (32-36); Mean Platelet Volume 11.9 fL (7.5-11.0); Monocyte (Absolute #) 0.45 x10^3/uL (0.0-1.3); Monocytes % 5.1 % (0.0-12.0); NUCLEATED RBC # 0.03 x10^3u/L (0.00-0.01); NUCLEATED RBC % 0.3 % (0.00-0.1); Platelet Count 124 x10^3/uL (150-450); Red Cell Distribution Width 18.6 % (11.5-14.0); White Blood Count 8.8 x10^3/uL (4.0-10.5)
[2023-01-26 10:53] LABS: ALBUMIN 3.4 g/dL (3.5-5.0); BILIRUBIN,TOTAL 2.5 mg/dL (0.2-1.3); Calcium 8.2 mg/dL (8.4-10.2); Creatinine 1 3.21 mg/dL (0.66-1.25); Potassium 3.4 mmol/L (3.5-5.1); Total Protein 6.8 g/dL (6.3-8.2)
[2023-01-26 11:12] LABS: PROTIME 19.2 SECONDS (9.4-12.5)
[2023-01-26 11:14] LABS: INR 1.84 (0.8-3.0)
--- NOTE | 2023-01-26 11:33 | XRAY ---
Indication: Poor healing ulcers. Two-dimensional sonogram and color Doppler imaging of the major arteries of the left leg performed. Comparison: None Minimal scattered arteriosclerotic disease in the common femoral, superficial femoral, and popliteal arteries. Mild scattered arteriosclerotic disease in the remaining posterior tibial and dorsal pedal arteries without critical stenosis/obstruction. Arterial waveforms are multiphasic throughout the left leg. Impression: Minimal/mild scattered arteriosclerotic disease without critical stenosis/obstruction.
[2023-01-26] MEDS ORDERED: ROCEPHIN 1 Gm-D5w 50 ml Bag** 1 G/50 ML IVPB IV STA (12:04)
[2023-01-26] MEDS ORDERED: ROCEPHIN 1 Gm-D5w 50 ml Bag** 1 G/50 ML IVPB IV ONE (12:10)
[2023-01-26] MEDS ORDERED: MORPHINE SULFATE 2 MG INJ IV PRN (12:49)
[2023-01-26] MEDS ORDERED: TYLENOL 325 MG PO PRN (12:49)
[2023-01-26] MEDS ORDERED: Zofran 4 MG/2 ML VIAL IV PRN (12:49)
[2023-01-26] MEDS ORDERED: HUMULIN R SQ PRN (12:49)
[2023-01-26] MEDS ORDERED: Sodium Chloride 0.9% 1000 ML 1,000 ML IV SCH (12:49)
[2023-01-26] MEDS ORDERED: PHARMACY DOSING REQUEST MC ONE ×2 (13:50→14:25)
[2023-01-26] MEDS ORDERED: PHARMACY DOSING REQUIRED: VANCOMYCIN IV STA (14:25)
[2023-01-26] MEDS ORDERED: Klor Con PO ONE (14:28)
[2023-01-26] MEDS: BUMEX 1 MG IV SCH (14:37)
--- NOTE | 2023-01-26 15:29 | XRAY ---
Indication: Weakness. CHF. Comparison: July 22, 2022 AP chest again demonstrates cardiomegaly with left dual-lead pacemaker and minimal left base subsegmental atelectasis/scarring. New mild right base infiltrate/atelectasis/effusion. Also new 1.4cm right mid lung nodularity better evaluated with CT. Bony thorax intact.
[2023-01-26] MEDS ORDERED: JANTOVEN PO SCH (18:00)
--- NOTE | 2023-01-26 18:50 | PCM.HP ---
History of Present Illness - Chief Complaint Chief Complaint: Cellulitis Date: 01/26/23 History of Present Illness: is a 77 year old male with a pmhx HFrEF (EF 20%), CAD, HLD, DM, CKD, AFIB (pacemaker/def on coumadin), and hypothyroidism presented to the ER 01/26/23 with complaints of LLE erythema and edema making it difficult to ambulate. Patient states that he was being treated outpatient with Keflex however it interacted with his coumadin causing supratherapeutic levels. Patient was given vitamin K and is now at 1.84. In ER, patient was normotensive, afibrile, and hypotensive. Laboratory interpretation is remarkable for plt at 124, mildly hyponatremic at 134, mildly hypokalemic at 3.4, Gap at 20, BUN at 75, creat at 3.21 (baseline around 2.5- 2.8), lactic acid at 2.2, BNP >18612, total bili at 2.5, procalcitonin at 3.34, and alk phos at 3.4. Patient was given potassium, ceftriaxone, and IVF at 50ml/hr. Arterial US of the left leg showing minimal/mild scattered arteriosclerotic disease without critical stenosis/obstruction. CXR remarkable for cardiomegaly, mild infiltrate/atelectasis/effusion in the right base, and a 1.4 cm lung nodule. Left foot negative for acute etiology. - Review of Systems Constitutional: No Symptoms Eyes: No Symptoms Ears, Nose, & Throat: No Symptoms Respiratory: Cough, Short Of Breath Cardiac: No Symptoms, Edema (BLE edema +4 pitting) Abdominal/Gastrointestinal: No Symptoms Genitourinary Symptoms: Hesitancy Musculoskeletal: Joint Pain Skin: Cellulitis (LLE) Neurological: No Symptoms Psychological: No Symptoms Hematologic/Lymphatic: Easy Bleeding, Easy Bruising (secondary to coumadin ) Medications & Allergies Home Medications: Home Medication List Amiodarone HCl 100 mg PO DAILY 05/28/19 [History Confirmed 01/26/23] Aspirin 81 mg PO DAILY 05/28/19 [History Confirmed 01/26/23] Atorvastatin Calcium 40 mg PO HS 05/28/19 [History Confirmed 01/26/23] Carvedilol [Coreg] 3.125 mg PO BID 09/24/20 [History Confirmed 01/26/23] Linagliptin [Tradjenta] 5 mg PO DAILY 09/24/20 [History Confirmed 01/26/23] Empagliflozin [Jardiance] 25 mg PO DAILY 08/26/21 [History Confirmed 01/26/23] Warfarin Sodium See Rx Instructions .ROUTE .COMPLEX 08/26/21 [History Confirmed 01/26/23] Allopurinol 300 mg [Zyloprim 300 mg] 300 mg PO HS 10/08/21 [History Confi rmed 01/26/23] Cholecalciferol (Vitamin D3) [Vitamin D] 25 mcg PO DAILY 10/08/21 [History Confirmed 01/26/23] Docusate Sodium 100 mg [Docusate Sodium 100 MG] 100 mg PO HS 10/08/21 [History Confirmed 01/26/23] Levothyroxine Sodium 100 Mcg [Synthroid 100 Mcg] 100 mcg PO DAILY 05/05/22 [History Confirmed 01/26/23] Furosemide 40 mg [Lasix 40 MG] 60 mg pe PO BID 01/26/23 [History Confirmed 01/26/23] Allergies/Adverse Reactions: Allergies Allergy/AdvReac Type Severity Reaction Status Date / Time gemfibrozil Allergy Mild Verified 01/26/23 09:47 - Past Medical History Past Medical History: Yes Cardiac History: Coronary Artery Disease, High Cholesterol, Myocardial Infarction (SD) Endocrine Medical History: Diabetes Type II History: Renal Disease Comment: A-fib - Past Surgical History Past Surgical History: Yes Cardiac History: Internal Defibrillator, Pacemaker, Other Genitourinary Surgical Hx: Kidney Surgery (right ureter stent) Other Surgical History: Tonsillectomy, pacemaker/defib - Social History Smoking Status: Former smoker Exposure to second hand smoke: No Alcohol: None Drug Use: none - Physical Exam Vital Signs: Vital Signs - 24 hr Temp Pulse Resp BP BP Pulse Ox 01/26/23 16:00 97.3 F 70 16 88/57 94 L 01/26/23 13:03 97 F 71 107/78 01/26/23 11:04 71 21 131/76 96 01/26/23 11:03 92 L 01/26/23 10:17 108/68 01/26/23 10:00 97/73 01/26/23 09:33 97 F 85 16 107/78 96 General Appearance: no apparent distress Neurologic Exam: alert, oriented x 3, cooperative, normal mood/affect Eye Exam: PERRL/EOMI Respiratory Exam: normal breath sounds, lungs clear Cardiovascular Exam: regular rate/rhythm, edema (BLE +4 pitting edema) Gastrointestinal/Abdomen Exam: soft, normal bowel sounds Rectal Exam: not done Extremity Exam: other (Scattered bruising to BUE/ Left rib region) Skin Exam: petechiae, other (LLE redness, small open wound with minimal clear drainage) Results - Labs Lab/Micro Results: Lab Results-Last 24 Hours 01/26/23 01/26/23 01/26/23 Range/Units 10:02 10:21 10:21 WBC 8.8 (4.0-10.5) x10^3/uL RBC 4.70 (4.1-5.6) x10^6/uL Hgb 13.8 (12.5-18.0) g/dL Hct 42.6 (42-50) % MCV 90.6 (78-100) fL MCH 29.4 (26-32) pg MCHC 32.4 (32-36) g/dL RDW 18.6 H (11.5-14.0) % Plt Count 124 L (150-450) x10^3/uL MPV 11.9 H (7.5-11.0) fL Gran % 86.0 H (36.0-66.0) % Immature Gran % (Auto) 0.5 H (0.00-0.4) % Nucleat RBC Rel Count 0.3 H (0.00-0.1) % Eos # (Auto) 0.05 (0-0.5) x10^3/uL Immature Gran # (Auto) 0.04 H (0.00-0.03) x10^3u/L Absolute Lymphs (auto) 0.68 L (1.0-4.6) x10^3/uL Absolute Monos (auto) 0.45 (0.0-1.3) x10^3/uL Absolute Nucleated RBC 0.03 H (0.00-0.01) x10^3u/L Lymphocytes % 7.7 L (24.0-44.0) % Monocytes % 5.1 (0.0-12.0) % Eosinophils % 0.6 (0.00-5.0) % Basophils % 0.1 (0.0-0.4) % Absolute Granulocytes 7.58 H (1.4-6.9) x10^3/uL Basophils # 0.01 (0-0.4) x10^3/uL ESR (0-15) mm/hr PT (9.4-12.5) SECONDS INR (0.8-3.0) Sodium 134 L (137-145) mmol/L Potassium 3.4 L (3.5-5.1) mmol/L Chloride 97 L (98-107) mmol/L Carbon Dioxide 20 L (22-30) mmol/L Anion Gap 20.0 H (5-15) MEQ/L BUN 75 H (9-20) mg/dL Creatinine 3.21 H (0.66-1.25) mg/dL Estimated GFR 20.0 ML/MIN Glucose 169 H (74-106) mg/dL POC Glucometer (74 to 106) mg/dL Lactic Acid 2.2 H (0.4-2.0) Calcium 8.2 L (8.4-10.2) mg/dL Total Bilirubin 2.50 H (0.2-1.3) mg/dL AST 40 (17-59) U/L ALT 29 (0-50) U/L Alkaline Phosphatase 310 H (38-126) U/L NT-Pro-B Natriuret Pep (<300) pg/mL Serum Total Protein 6.8 (6.3-8.2) g/dL Albumin 3.4 L (3.5-5.0) g/dL Procalcitonin (0.030-0.080) ng/mL 01/26/23 01/26/23 01/26/23 Range/Units 10:21 10:47 14:45 WBC (4.0-10.5) x10^3/uL RBC (4.1-5.6) x10^6/uL Hgb (12.5-18.0) g/dL Hct (42-50) % MCV (78-100) fL MCH (26-32) pg MCHC (32-36) g/dL RDW (11.5-14.0) % Plt Count (150-450) x10^3/uL MPV (7.5-11.0) fL Gran % (36.0-66.0) % Immature Gran % (Auto) (0.00-0.4) % Nucleat RBC Rel Count (0.00-0.1) % Eos # (Auto) (0-0.5) x10^3/uL Immature Gran # (Auto) (0.00-0.03) x10^3u/L Absolute Lymphs (auto) (1.0-4.6) x10^3/uL Absolute Monos (auto) (0.0-1.3) x10^3/uL Absolute Nucleated RBC (0.00-0.01) x10^3u/L Lymphocytes % (24.0-44.0) % Monocytes % (0.0-12.0) % Eosinophils % (0.00-5.0) % Basophils % (0.0-0.4) % Absolute Granulocytes (1.4-6.9) x10^3/uL Basophils # (0-0.4) x10^3/uL ESR 54 H (0-15) mm/hr PT 19.2 H (9.4-12.5) SECONDS INR 1.84 D (0.8-3.0) Sodium (137-145) mmol/L Potassium (3.5-5.1) mmol/L Chloride (98-107) mmol/L Carbon Dioxide (22-30) mmol/L Anion Gap (5-15) MEQ/L BUN (9-20) mg/dL Creatinine (0.66-1.25) mg/dL Estimated GFR ML/MIN Glucose (74-106) mg/dL POC Glucometer (74 to 106) mg/dL Lactic Acid (0.4-2.0) Calcium (8.4-10.2) mg/dL Total Bilirubin (0.2-1.3) mg/dL AST (17-59) U/L ALT (0-50) U/L Alkaline Phosphatase (38-126) U/L NT-Pro-B Natriuret Pep > 74904 (<300) pg/mL Serum Total Protein (6.3-8.2) g/dL Albumin (3.5-5.0) g/dL Procalcitonin (0.030-0.080) ng/mL 01/26/23 01/26/23 Range/Units 14:45 16:51 WBC (4.0-10.5) x10^3/uL RBC (4.1-5.6) x10^6/uL Hgb (12.5-18.0) g/dL Hct (42-50) % MCV (78-100) fL MCH (26-32) pg MCHC (32-36) g/dL RDW (11.5-14.0) % Plt Count (150-450) x10^3/uL MPV (7.5-11.0) fL Gran % (36.0-66.0) % Immature Gran % (Auto) (0.00-0.4) % Nucleat RBC Rel Count (0.00-0.1) % Eos # (Auto) (0-0.5) x10^3/uL Immature Gran # (Auto) (0.00-0.03) x10^3u/L Absolute Lymphs (auto) (1.0-4.6) x10^3/uL Absolute Monos (auto) (0.0-1.3) x10^3/uL Absolute Nucleated RBC (0.00-0.01) x10^3u/L Lymphocytes % (24.0-44.0) % Monocytes % (0.0-12.0) % Eosinophils % (0.00-5.0) % Basophils % (0.0-0.4) % Absolute Granulocytes (1.4-6.9) x10^3/uL Basophils # (0-0.4) x10^3/uL ESR (0-15) mm/hr PT (9.4-12.5) SECONDS INR (0.8-3.0) Sodium (137-145) mmol/L Potassium (3.5-5.1) mmol/L Chloride (98-107) mmol/L Carbon Dioxide (22-30) mmol/L Anion Gap (5-15) MEQ/L BUN (9-20) mg/dL Creatinine (0.66-1.25) mg/dL Estimated GFR ML/MIN Glucose (74-106) mg/dL POC Glucometer 179 H (74 to 106) mg/dL Lactic Acid (0.4-2.0) Calcium (8.4-10.2) mg/dL Total Bilirubin (0.2-1.3) mg/dL AST (17-59) U/L ALT (0-50) U/L Alkaline Phosphatase (38-126) U/L NT-Pro-B Natriuret Pep (<300) pg/mL Serum Total Protein (6.3-8.2) g/dL Albumin (3.5-5.0) g/dL Procalcitonin 3.340 H* (0.030-0.080) ng/mL - Radiology Impressions Radiology Exams & Impressions: Radiology Procedures Category Date Time Status ARTERIAL UNILAT/LTD LOWER EXT [US] Stat Exams 01/26/23 10:00 Completed CHEST 1 VIEW (PORTABLE) Stat Exams 01/26/23 14:51 Completed FOOT (MINIMUM 3 VIEWS) Stat Exams 01/26/23 09:59 Completed Assessment/Plan (1) Cellulitis Current Visit: Yes Status: Acute Assessment & Plan: is a 77 year old male with a pmhx HFrEF (EF 20%), CAD, HLD, DM, CKD, AFIB (pacemaker/def on coumadin), and hypothyroidism admitted for LLE cellulitis after failed outpatient treatment due to supratherapeutic INR with the useage. - -ALT-70 score at 5pts, ESR elevated at 54, procal at 3.34, will treat with Zosyn overnight until Nuzyra available due to patient's renal function -Further therapy pending clinical response -Elevate LLE -arterial duplex negative for stenosis/occulusion, low risk for DVT due to long- term use of coumadin, venous doppler not performed -Wound consult -Bcult/wound cult pending Code(s): L03.90 - CELLULITIS, UNSPECIFIED (2) Lactic acidosis Current Visit: Yes Status: Acute Assessment & Plan: -Secondary to cellulitis, fluid resuscitation contraindicated due to CHF/renal function Code(s): E87.20 - ACIDOSIS, UNSPECIFIED (3) Hypokalemia Current Visit: Yes Status: Acute Assessment & Plan: -replenished, will continue to monitor renal/lytes closely Code(s): E87.6 - HYPOKALEMIA (4) On Coumadin for atrial fibrillation Current Visit: Yes Status: Chronic Assessment & Plan: -Managed outpatient by pharmacy, INR at 1.84, pharmacy to dose coumadin while IP Code(s): I48.91 - UNSPECIFIED ATRIAL FIBRILLATION; Z79.01 - BUCKLE ATT[employer]ER (CURRENT) USE OF ANTICOAGULANTS (5) HFrEF (heart failure with reduced ejection fraction) Current Visit: Yes Status: Chronic Assessment & Plan: -EF at 20% -BNP > 12264 -Supplemental o2 as needed with goal > 90%, patient currently on RA with spo2 at 94% -Elevate HOB -Tele -bumex 1BID IVPB for now, may increase or add metolazone pending clinical response -Continue Carvedilol, entresto contraindicated due to renal function Code(s): I50.20 - UNSPECIFIED SYSTOLIC (CONGESTIVE) HEART FAILURE (6) Elevated brain natriuretic peptide (BNP) level Current Visit: Yes Status: Acute Assessment & Plan: -see HFrEF Code(s): R79.89 - OTHER SPECIFIED ABNORMAL FINDINGS OF BLOOD CHEMISTRY (7) Chronic kidney disease, stage 3 Current Visit: No Status: Chronic Assessment & Plan: -Slightly above baseline at 3.21 (2.5-2.8) -Continue to monitor renal/lytes daily -Avoid nephrotoxic meds/NSAID -renal dose all medications Code(s): N18.3 - CHRONIC KIDNEY DISEASE, STAGE 3 (MODERATE) * DO NOT USE * Telemedicine Encounter - Telemedicine Encounter Telemedicine Encounter: The entirety of this encounter was performed via Telemedicine"
[2023-01-26] MEDS ORDERED: LIPITOR 40MG PO SCH (22:00)
[2023-01-26] MEDS ORDERED: Docusate Sodium 100 MG PO SCH (22:00)
[2023-01-26] MEDS ORDERED: ZYLOPRIM 300 MG PO SCH (22:00)
[2023-01-26] MEDS ORDERED: Coreg PO SCH (22:00)
[2023-01-26] MEDS ORDERED: ZOCOR 20MG PO SCH (22:00)
[2023-01-26] MEDS: Piperacillin/Tazobactam 2.25 GM 2.25 GM in Sodium Chloride 100ML MINI-BAG PLUS 100 ML IV SCH (22:46)
[2023-01-26] MEDS: Coreg 3.125 MG PO SCH (22:54)
[2023-01-27 00:18] VITALS: TEMP 98.2
[2023-01-27 04:55] LABS: Hematocrit 40.1 % (42-50); Mean Cell Volume 90.9 fL (78-100); Mean Corpuscular Hemoglobin 29.5 pg (26-32); Mean Corpuscular Hgb Concent. 32.4 g/dL (32-36); Mean Platelet Volume 11.8 fL (7.5-11.0); Platelet Count 112 x10^3/uL (150-450); Red Blood Count 4.41 x10^6/uL (4.1-5.6); Red Cell Distribution Width 18.6 % (11.5-14.0); White Blood Count 7.2 x10^3/uL (4.0-10.5)
[2023-01-27 05:26] LABS: INR 1.71 (0.8-3.0); PROTIME 17.9 SECONDS (9.4-12.5)
[2023-01-27 05:32] LABS: ALBUMIN 3.1 g/dL (3.5-5.0); ANION GAP 19.6 MEQ/L (5-15); BILIRUBIN,TOTAL 2.1 mg/dL (0.2-1.3); Calcium 7.9 mg/dL (8.4-10.2); Creatinine 1 3.4 mg/dL (0.66-1.25); EST GLOMERULAR FILTRATION RATE 18.7 ML/MIN; Potassium 4.2 mmol/L (3.5-5.1); Total Protein 6.1 g/dL (6.3-8.2)
[2023-01-27] MEDS: BUMEX 1 MG IV SCH (06:37)
[2023-01-27] MEDS: Piperacillin/Tazobactam 2.25 GM 2.25 GM in Sodium Chloride 100ML MINI-BAG PLUS 100 ML IV SCH (06:42)
[2023-01-27 07:29] VITALS: PULSE 74; RESP 18; O2SAT 91
[2023-01-27] MEDS: Cordarone 200 MG PO SCH ×2 (09:12→09:39)
[2023-01-27] MEDS: Coreg 3.125 MG PO SCH (09:39)
[2023-01-27] MEDS ORDERED: VITAMIN D PO SCH (10:00)
[2023-01-27] MEDS ORDERED: BABY ASPIRIN 81 MG CHEW PO SCH (10:00)
[2023-01-27] MEDS ORDERED: LINAGLIPTIN 5 MG PO SCH (10:00)
[2023-01-27] MEDS ORDERED: ROCEPHIN 1 Gm-D5w 50 ml Bag** 1 G/50 ML IVPB IV SCH (10:00)
[2023-01-27] MEDS ORDERED: ECOTRIN 81 MG PO SCH (10:00)
[2023-01-27] MEDS ORDERED: SYNTHROID 100 MCG PO SCH (10:00)
[2023-01-27] MEDS ORDERED: Januvia 50 MG PO SCH (10:00)
[2023-01-27 11:00] VITALS: BP 84/54
--- NOTE | 2023-01-27 12:39 | PCM.CONS ---
Podiatry HPI - Consult Date of Consultation Date: 01/27/23 Consulting Provider: LYLE BARNES DPM - [facility] History of Present Illness: Chaz is a very pleasant 77-year-old male who presents today with complaints of pain to the left lower extremity secondary to cellulitis. Patient demonstrating erythema with proximal streaking to the level of the metatarsophalangeal joints to the mid diaphysis. Skin marker demonstrating a line which appears some resolution of the cellulitis at this time. Patient does have extensive history of stage III chronic kidney disease A-fib type 2 diabetes and congestive heart failure. He was placed on Keflex on outpatient management however has failed this attempt and is now being monitored on IV vancomycin and Zosyn. Arterial Dopplers were taken demonstrating multiphasic waveforms for dorsalis pedis and posterior tibial arteries. Patient denies any current constitutional symptoms of infection however he indicates that he did have chills for a 24-hour period. Currently denies any other pedal complaints at this time Medications & Allergies Home Medications: Home Medication List Amiodarone HCl 100 mg PO DAILY 05/28/19 [History Confirmed 01/26/23] Aspirin 81 mg PO DAILY 05/28/19 [History Confirmed 01/26/23] Atorvastatin Calcium 40 mg PO HS 05/28/19 [History Confirmed 01/26/23] Carvedilol [Coreg] 3.125 mg PO BID 09/24/20 [History Confirmed 01/26/23] Linagliptin [Tradjenta] 5 mg PO DAILY 09/24/20 [History Confirmed 01/26/23] Empagliflozin [Jardiance] 25 mg PO DAILY 08/26/21 [History Confirmed 01/26/23] Warfarin Sodium See Rx Instructions .ROUTE .COMPLEX 08/26/21 [History Confirmed 01/26/23] Allopurinol 300 mg [Zyloprim 300 mg] 300 mg PO HS 10/08/21 [History Confirmed 01/26/23] Cholecalciferol (Vitamin D3) [Vitamin D] 25 mcg PO DAILY 10/08/21 [History Confirmed 01/26/23] Docusate Sodium 100 mg [Docusate Sodium 100 MG] 100 mg PO HS 10/08/21 [History Confirmed 01/26/23] Levothyroxine Sodium 100 Mcg [Synthroid 100 Mcg] 100 mcg PO DAILY 05/05/22 [History Confirmed 01/26/23] Furosemide 40 mg [Lasix 40 MG] 60 mg pe PO BID 01/26/23 [History Confirmed 01/26/23] Allergies/Adverse Reactions: Allergies Allergy/AdvReac Type Severity Reaction Status Date / Time gemfibrozil Allergy Mild Verified 01/26/23 09:47 - Past Medical History Past Medical History: Yes Cardiac History: Coronary Artery Disease, High Cholesterol, Myocardial Infarction (ND) Endocrine Medical History: Diabetes Type II History: Renal Disease Comment: A-fib - Past Surgical History Past Surgical History: Yes Cardiac History: Internal Defibrillator, Pacemaker, Other Genitourinary Surgical Hx: Kidney Surgery (right ureter stent) Other Surgical History: Tonsillectomy, pacemaker/defib - Social History Smoking Status: Former smoker Exposure to second hand smoke: No Alcohol: None Drug Use: none Physical Exam - General General Appearance: no apparent distress - Neuro Neurologic: Epicritic and protopathic (diminished) - Vascular Peripheral Pulses: Posterior tibialis: 2+, Dorsalis-Pedis: 2+ Capillary Refill Time: < 3 seconds Hair Growth: Symmetrical and Bilateral Varicosities: Positive Edema: Pitting Edema Degree: 4+ Skin: Supple, not atrophic Skin Temperature: Warm to touch - Muscular Muscle Strength: 5/5 on all 4 quadrants - Narrative Narrative Physical Exam: Cellulitis to the left lower extremity from the level of the metatarsophalangeal joints to the tibial mid diaphysis, no proximal streaking or lymphangitis noted. 3+ edema noted. No lymphadenopathy on palpation of the popliteal and inguinal lymph nodes b/l. Results - Labs Lab/Micro Results: Lab Results-Last 24 Hours 01/26/23 01/26/23 01/26/23 Range/Units 14:45 14:45 16:51 WBC (4.0-10.5) x10^3/uL RBC (4.1-5.6) x10^6/uL Hgb (12.5-18.0) g/dL Hct (42-50) % MCV (78-100) fL MCH (26-32) pg MCHC (32-36) g/dL RDW (11.5-14.0) % Plt Count (150-450) x10^3/uL MPV (7.5-11.0) fL ESR 54 H (0-15) mm/hr PT (9.4-12.5) SECONDS INR (0.8-3.0) Sodium (137-145) mmol/L Potassium (3.5-5.1) mmol/L Chloride (98-107) mmol/L Carbon Dioxide (22-30) mmol/L Anion Gap (5-15) MEQ/L BUN (9-20) mg/dL Creatinine (0.66-1.25) mg/dL Estimated GFR ML/MIN Glucose (74-106) mg/dL POC Glucometer 179 H (74 to 106) mg/dL Lactic Acid (0.4-2.0) Calcium (8.4-10.2) mg/dL Total Bilirubin (0.2-1.3) mg/dL AST (17-59) U/L ALT (0-50) U/L Alkaline Phosphatase (38-126) U/L Serum Total Protein (6.3-8.2) g/dL Albumin (3.5-5.0) g/dL Procalcitonin 3.340 H* (0.030-0.080) ng/mL 01/26/23 01/27/23 01/27/23 Range/Units 21:08 04:20 04:20 WBC 7.2 (4.0-10.5) x10^3/uL RBC 4.41 (4.1-5.6) x10^6/uL Hgb 13.0 (12.5-18.0) g/dL Hct 40.1 L (42-50) % MCV 90.9 (78-100) fL MCH 29.5 (26-32) pg MCHC 32.4 (32-36) g/dL RDW 18.6 H (11.5-14.0) % Plt Count 112 L (150-450) x10^3/uL MPV 11.8 H (7.5-11.0) fL ESR (0-15) mm/hr PT 17.9 H (9.4-12.5) SECONDS INR 1.71 (0.8-3.0) Sodium (137-145) mmol/L Potassium (3.5-5.1) mmol/L Chloride (98-107) mmol/L Carbon Dioxide (22-30) mmol/L Anion Gap (5-15) MEQ/L BUN (9-20) mg/dL Creatinine (0.66-1.25) mg/dL Estimated GFR ML/MIN Glucose (74-106) mg/dL POC Glucometer 175 H (74 to 106) mg/dL Lactic Acid (0.4-2.0) Calcium (8.4-10.2) mg/dL Total Bilirubin (0.2-1.3) mg/dL AST (17-59) U/L ALT (0-50) U/L Alkaline Phosphatase (38-126) U/L Serum Total Protein (6.3-8.2) g/dL Albumin (3.5-5.0) g/dL Procalcitonin (0.030-0.080) ng/mL 01/27/23 01/27/23 01/27/23 Range/Units 04:20 04:53 06:48 WBC (4.0-10.5) x10^3/uL RBC (4.1-5.6) x10^6/uL Hgb (12.5-18.0) g/dL Hct (42-50) % MCV (78-100) fL MCH (26-32) pg MCHC (32-36) g/dL RDW (11.5-14.0) % Plt Count (150-450) x10^3/uL MPV (7.5-11.0) fL ESR (0-15) mm/hr PT (9.4-12.5) SECONDS INR (0.8-3.0) Sodium 131 L (137-145) mmol/L Potassium 4.2 D (3.5-5.1) mmol/L Chloride 98 (98-107) mmol/L Carbon Dioxide 18 L (22-30) mmol/L Anion Gap 19.6 H (5-15) MEQ/L BUN 77 H (9-20) mg/dL Creatinine 3.40 H (0.66-1.25) mg/dL Estimated GFR 18.7 ML/MIN Glucose 156 H (74-106) mg/dL POC Glucometer 155 H (74 to 106) mg/dL Lactic Acid 2.7 H (0.4-2.0) Calcium 7.9 L (8.4-10.2) mg/dL Total Bilirubin 2.10 H (0.2-1.3) mg/dL AST 167 H (17-59) U/L ALT 62 H (0-50) U/L Alkaline Phosphatase 271 H (38-126) U/L Serum Total Protein 6.1 L (6.3-8.2) g/dL Albumin 3.1 L (3.5-5.0) g/dL Procalcitonin (0.030-0.080) ng/mL 01/27/23 Range/Units 11:39 WBC (4.0-10.5) x10^3/uL RBC (4.1-5.6) x10^6/uL Hgb (12.5-18.0) g/dL Hct (42-50) % MCV (78-100) fL MCH (26-32) pg MCHC (32-36) g/dL RDW (11.5-14.0) % Plt Count (150-450) x10^3/uL MPV (7.5-11.0) fL ESR (0-15) mm/hr PT (9.4-12.5) SECONDS INR (0.8-3.0) Sodium (137-145) mmol/L Potassium (3.5-5.1) mmol/L Chloride (98-107) mmol/L Carbon Dioxide (22-30) mmol/L Anion Gap (5-15) MEQ/L BUN (9-20) mg/dL Creatinine (0.66-1.25) mg/dL Estimated GFR ML/MIN Glucose (74-106) mg/dL POC Glucometer 228 H (74 to 106) mg/dL Lactic Acid (0.4-2.0) Calcium (8.4-10.2) mg/dL Total Bilirubin (0.2-1.3) mg/dL AST (17-59) U/L ALT (0-50) U/L Alkaline Phosphatase (38-126) U/L Serum Total Protein (6.3-8.2) g/dL Albumin (3.5-5.0) g/dL Procalcitonin (0.030-0.080) ng/mL Microbiology 01/26/23 10:35 Blood Culture Gram Stain - Final Blood 01/26/23 10:21 Blood Culture Gram Stain - Final Blood 01/26/23 10:10 Wound Culture - Preliminary Ankle - Left GRAM NEGATIVE ID AND SENSITIVITY PENDING Accuchecks Date 01/27/23 Date 01/26/23 Time 07:26 Time 21:00 - Radiology Impressions Radiology Exams & Impressions: Radiology Procedures Category Date Time Status ARTERIAL UNILAT/LTD LOWER EXT [US] Stat Exams 01/26/23 10:00 Completed CHEST 1 VIEW (PORTABLE) Stat Exams 01/26/23 14:51 Completed FOOT (MINIMUM 3 VIEWS) Stat Exams 01/26/23 09:59 Completed Assessment/Plan (1) Venous insufficiency of both lower extremities Current Visit: Yes Status: Acute Assessment & Plan: Initial patient examination evaluation. Patient has patent blood vessels to the left lower extremity with multiphasic waveforms. Compartments at this time are soft and compressible with 2-3+ pitting edema to the bilateral lower extremity. Left lower extremity with cellulitis being managed by hospitalist at this time with Vanco and Zosyn after failure of outpatient therapy Patient appears to be a good candidate for compression therapy to the bilateral lower extremities secondary to his localized edema with volume overload as well as cellulitis to the left lower extremity. Patient is under impression he is likely to be discharged to another facility. Patient to follow-up 1 week status post discharge in outpatient setting if patient has made it out of the hospital setting by that time If patient stays dressings will be changed Monday and assessment of wounds will be made Will follow with you Code(s): I87.2 - VENOUS INSUFFICIENCY (CHRONIC) (PERIPHERAL) (2) Localized edema due to fluid overload Current Visit: Yes Status: Acute Code(s): E87.70 - FLUID OVERLOAD, UNSPECIF IED (3) Bacteremia Current Visit: No Status: Acute Code(s): R78.81 - BACTEREMIA (4) Dyspnea Current Visit: No Status: Acute Code(s): R06.00 - DYSPNEA, UNSPECIFIED (5) Chronic kidney disease, stage 3 Current Visit: No Status: Chronic Code(s): N18.3 - CHRONIC KIDNEY DISEASE, STAGE 3 (MODERATE) * DO NOT USE * (6) Wheezing on expiration Current Visit: No Status: Acute Code(s): R06.2 - WHEEZING (7) Renal insufficiency Current Visit: No Status: Acute (8) Coagulopathy Current Visit: No Status: Acute (9) Elevated INR Current Visit: No Status: Acute Code(s): R79.1 - ABNORMAL COAGULATION PROFILE (10) Gout Current Visit: No Status: Acute Code(s): M10.9 - GOUT, UNSPECIFIED (11) Cellulitis Current Visit: Yes Status: Acute Code(s): L03.90 - CELLULITIS, UNSPECIFIED
--- NOTE | 2023-01-27 12:59 | PCM.DS ---
Discharge Summary Date of Admission: 01/26/23 12:46 Date of Discharge: 01/27/23 Admitting Physician: FREDY ROBLES MD Consults: Consults on Case 01/27/23 09:39 Consult Podiatry ROUTINE Primary Care Provider: TANISHA CONTRERAS TONY Allergies Allergies gemfibrozil Allergy (Mild, Verified 01/26/23 09:47) skin pigmentation change, "turns me orange." Hospital Summary - Hospital Course Hospital Course: is a 77 year old male with a pmhx HFrEF (EF 20%), CAD, HLD, DM, CKD, AFIB (pacemaker/def on coumadin), and hypothyroidism presented to the ER 01/26/23 with complaints of LLE erythema and edema making it difficult to ambulate. Patient states that he was being treated outpatient with Keflex however it interacted with his coumadin causing supratherapeutic levels. Patient was given vitamin K and is now at 1.71. In ER, patient was normotensive, afibrile, and hypotensive. Laboratory interpretation is remarkable for plt at 124, mildly hyponatremic at 134, mildly hypokalemic at 3.4, Gap at 20, BUN at 75, creat at 3.21 (baseline around 2.5-2.8), lactic acid at 2.2, BNP >98082, total bili at 2.5, procalcitonin at 3.34, and alk phos at 3.4. Patient was given potassium, ceftriaxone, and IVF at 50ml/hr. CXR remarkable for cardiomegaly, mild infiltrate/atelectasis/effusion in the right base, and a 1.4 cm lung nodule. Left foot negative for acute etiology.Patient demonstrating erythema with proximal streaking to the level of the metatarsophalangeal joints to the mid diaphysis. Arterial Dopplers demonstrated multiphasic waveforms for dorsalis pedis and posterior tibial arteries. Blood and wound cultures now positive for gram negative organism. Nuzyra was ordered for the patient to start today, but due to worsening cardiorenal syndrome and the potential need for long-term antibiotics, patient is being transferred to a higher level of care at [facility]. (1) Cellulitis Current Visit: Yes Status: Acute Assessment & Plan: is a 77 year old male with a pmhx HFrEF (EF 20%), CAD, HLD, DM, CKD, AFIB (pacemaker/def on coumadin), and hypothyroidism admitted for LLE cellulitis after failed outpatient treatment due to supratherapeutic INR with the useage. - -ALT-70 score at 5pts, ESR elevated at 54, procal at 3.34, will treat with Zosyn overnight until Nuzyra available due to patient's renal function -Further therapy pending clinical response -Elevate LLE -arterial duplex negative for stenosis/occulusion, low risk for DVT due to long- term use of coumadin, venous doppler not performed -Wound consult -Bcult/wound cult pending Code(s): L03.90 - CELLULITIS, UNSPECIFIED (2) Lactic acidosis Current Visit: Yes Status: Acute Assessment & Plan: -Secondary to cellulitis, fluid resuscitation contraindicated due to CHF/renal function Code(s): E87.20 - ACIDOSIS, UNSPECIFIED (3) Hypokalemia Current Visit: Yes Status: Acute Assessment & Plan: -replenished, will continue to monitor renal/lytes closely Code(s): E87.6 - HYPOKALEMIA (4) On Coumadin for atrial fibrillation Current Visit: Yes Status: Chronic Assessment & Plan: -Managed outpatient by pharmacy, INR at 1.84, pharmacy to dose coumadin while IP Code(s): I48.91 - UNSPECIFIED ATRIAL FIBRILLATION; Z79.01 - RESIDENTIAL SUPPORT SPECIALIST (CURRENT) USE OF ANTICOAGULANTS (5) HFrEF (heart failure with reduced ejection fraction) Current Visit: Yes Status: Chronic Assessment & Plan: -EF at 20% -BNP > 11051 -Supplemental o2 as needed with goal > 90%, patient currently on RA with spo2 at 94% -Elevate HOB -Tele -bumex 1BID IVPB for now, may increase or add metolazone pending clinical response -Continue Carvedilol, entresto contraindicated due to renal function Code(s): I50.20 - UNSPECIFIED SYSTOLIC (CONGESTIVE) HEART FAILURE (6) Elevated brain natriuretic peptide (BNP) level Current Visit: Yes Status: Acute Assessment & Plan: -see HFrEF Code(s): R79.89 - OTHER SPECIFIED ABNORMAL FINDINGS OF BLOOD CHEMISTRY (7) Chronic kidney disease, stage 3 Current Visit: No Status: Chronic Assessment & Plan: -Slightly above baseline at 3.21 (2.5-2.8) -Continue to monitor renal/lytes daily -Avoid nephrotoxic meds/NSAID -renal dose all medications Code(s): N18.3 - CHRONIC KIDNEY DISEASE, STAGE 3 (MODERATE) * DO NOT USE * - Vitals & Intake/Output Vital Signs: Vital Signs Temperature 98.2 F 01/27/23 07:27 Pulse Rate 74 01/27/23 07:27 Respiratory Rate 18 01/27/23 07:27 Blood Pressure 84/54 01/27/23 11:00 O2 Sat by Pulse Oximetry 91 L 01/27/23 07:27 Intake & Output: Intake & Output 01/25/23 01/26/23 01/27/23 01/28/23 11:59 11:59 11:59 11:59 Intake Total 720 Output Total 875 Balance -155 Weight 79.2 kg 79.2 kg - Lab Result Diagrams: 01/27/23 04:20 01/27/23 04:20 Lab Results-Last 24 Hrs: Lab Results-Last 24 Hours 01/26/23 01/26/23 01/26/23 Range/Units 14:45 14:45 16:51 WBC (4.0-10.5) x10^3/uL RBC (4.1-5.6) x10^6/uL Hgb (12.5-18.0) g/dL Hct (42-50) % MCV (78-100) fL MCH (26-32) pg MCHC (32-36) g/dL RDW (11.5-14.0) % Plt Count (150-450) x10^3/uL MPV (7.5-11.0) fL ESR 54 H (0-15) mm/hr PT (9.4-12.5) SECONDS INR (0.8-3.0) Sodium (137-145) mmol/L Potassium (3.5-5.1) mmol/L Chloride (98-107) mmol/L Carbon Dioxide (22-30) mmol/L Anion Gap (5-15) MEQ/L BUN (9-20) mg/dL Creatinine (0.66-1.25) mg/dL Estimated GFR ML/MIN Glucose (74-106) mg/dL POC Glucometer 179 H (74 to 106) mg/dL Lactic Acid (0.4-2.0) Calcium (8.4-10.2) mg/dL Total Bilirubin (0.2-1.3) mg/dL AST (17-59) U/L ALT (0-50) U/L Alkaline Phosphatase (38-126) U/L Serum Total Protein (6.3-8.2) g/dL Albumin (3.5-5.0) g/dL Procalcitonin 3.340 H* (0.030-0.080) ng/mL 01/26/23 01/27/23 01/27/23 Range/Units 21:08 04:20 04:20 WBC 7.2 (4.0-10.5) x10^3/uL RBC 4.41 (4.1-5.6) x10^6/uL Hgb 13.0 (12.5-18.0) g/dL Hct 40.1 L (42-50) % MCV 90.9 (78-100) fL MCH 29.5 (26-32) pg MCHC 32.4 (32-36) g/dL RDW 18.6 H (11.5-14.0) % Plt Count 112 L (150-450) x10^3/uL MPV 11.8 H (7.5-11.0) fL ESR (0-15) mm/hr PT 17.9 H (9.4-12.5) SECONDS INR 1.71 (0.8-3.0) Sodium (137-145) mmol/L Potassium (3.5-5.1) mmol/L Chloride (98-107) mmol/L Carbon Dioxide (22-30) mmol/L Anion Gap (5-15) MEQ/L BUN (9-20) mg/dL Creatinine (0.66-1.25) mg/dL Estimated GFR ML/MIN Glucose (74-106) mg/dL POC Glucometer 175 H (74 to 106) mg/dL Lactic Acid (0.4-2.0) Calcium (8.4-10.2) mg/dL Total Bilirubin (0.2-1.3) mg/dL AST (17-59) U/L ALT (0-50) U/L Alkaline Phosphatase (38-126) U/L Serum Total Protein (6.3-8.2) g/dL Albumin (3.5-5.0) g/dL Procalcitonin (0.030-0.080) ng/mL 01/27/23 01/27/23 01/27/23 Range/Units 04:20 04:53 06:48 WBC (4.0-10.5) x10^3/uL RBC (4.1-5.6) x10^6/uL Hgb (12.5-18.0) g/dL Hct (42-50) % MCV (78-100) fL MCH (26-32) pg MCHC (32-36) g/dL RDW (11.5-14.0) % Plt Count (150-450) x10^3/uL MPV (7.5-11.0) fL ESR (0-15) mm/hr PT (9.4-12.5) SECONDS INR (0.8-3.0) Sodium 131 L (137-145) mmol/L Potassium 4.2 D (3.5-5.1) mmol/L Chloride 98 (98-107) mmol/L Carbon Dioxide 18 L (22-30) mmol/L Anion Gap 19.6 H (5-15) MEQ/L BUN 77 H (9-20) mg/dL Creatinine 3.40 H (0.66-1.25) mg/dL Estimated GFR 18.7 ML/MIN Glucose 156 H (74-106) mg/dL POC Glucometer 155 H (74 to 106) mg/dL Lactic Acid 2.7 H (0.4-2.0) Calcium 7.9 L (8.4-10.2) mg/dL Total Bilirubin 2.10 H (0.2-1.3) mg/dL AST 167 H (17-59) U/L ALT 62 H (0-50) U/L Alkaline Phosphatase 271 H (38-126) U/L Serum Total Protein 6.1 L (6.3-8.2) g/dL Albumin 3.1 L (3.5-5.0) g/dL Procalcitonin (0.030-0.080) ng/mL 01/27/23 Range/Units 11:39 WBC (4.0-10.5) x10^3/uL RBC (4.1-5.6) x10^6/uL Hgb (12.5-18.0) g/dL Hct (42-50) % MCV (78-100) fL MCH (26-32) pg MCHC (32-36) g/dL RDW (11.5-14.0) % Plt Count (150-450) x10^3/uL MPV (7.5-11.0) fL ESR (0-15) mm/hr PT (9.4-12.5) SECONDS INR (0.8-3.0) Sodium (137-145) mmol/L Potassium (3.5-5.1) mmol/L Chloride (98-107) mmol/L Carbon Dioxide (22-30) mmol/L Anion Gap (5-15) MEQ/L BUN (9-20) mg/dL Creatinine (0.66-1.25) mg/dL Estimated GFR ML/MIN Glucose (74-106) mg/dL POC Glucometer 228 H (74 to 106) mg/dL Lactic Acid (0.4-2.0) Calcium (8.4-10.2) mg/dL Total Bilirubin (0.2-1.3) mg/dL AST (17-59) U/L ALT (0-50) U/L Alkaline Phosphatase (38-126) U/L Serum Total Protein (6.3-8.2) g/dL Albumin (3.5-5.0) g/dL Procalcitonin (0.030-0.080) ng/mL Micro Results-Entire Visit: Microbiology 01/26/23 10:35 Blood Culture Gram Stain - Final Blood 01/26/23 10:21 Blood Culture Gram Stain - Final Blood 01/26/23 10:10 Wound Culture - Preliminary Ankle - Left GRAM NEGATIVE ID AND SENSITIVITY PENDING Accuchecks Date 01/27/23 Date 01/26/23 Time 07:26 Time 21:00 - Radiology Exams Ordered Rad Exams-Entire Visit: Radiology Procedures Category Date Time Status ARTERIAL UNILAT/LTD LOWER EXT [US] Stat Exams 01/26/23 10:00 Completed CHEST 1 VIEW (PORTABLE) Stat Exams 01/26/23 14:51 Completed FOOT (MINIMUM 3 VIEWS) Stat Exams 01/26/23 09:59 Completed - Procedures and Test Procedures and Tests throughout Hospitalization: Therapy Orders & Screens 01/26/23 13:45 PT Eval & Treat (MD Order) ONCE Reason for Eval:: weakness Diagnosis: Cellulitis OT Eval and Treat (MD Order) ONCE Comment: Physician Instructions: Reason For Exam: Discharge Exam General Appearance: no apparent distress (LLE erythema with proximal streaking to the level of the metatarsophalangeal joints to the mid diaphysis) Neurologic Exam: alert, oriented x 3, cooperative Respiratory Exam: normal breath sounds, lungs clear Cardiovascular Exam: edema (BLE edema L>R), other (PPM) Gastrointestinal/Abdomen Exam: soft, normal bowel sounds Skin Exam: other (BLE edema L>R with) Wound Assessment: Skin/Wound Assessment Wound/Incision Assessment Start: 01/26/23 12:54 Text: Status: Active Freq: Q6H Protocol: Document 01/27/23 07:35 THAIS (Rec: 01/27/23 07:35 THAIS [id number]) Wound/Incision Assessment BLE Wound Assessment Shift Assessment Wound Type cellulitis Wound Stage Non Pressure Wound General Appearance Open to air Wound Photo Photo Taken No Final Diagnosis/Problem List - Final Discharge Diagnosis/Problem (1) Cellulitis Current Visit: Yes Status: Acute Code(s): L03.90 - CELLULITIS, UNSPECIFIED (2) Lactic acidosis Current Visit: Yes Status: Acute Code(s): E87.20 - ACIDOSIS, UNSPECIFIED (3) Hypokalemia Current Visit: Yes Status: Acute Code(s): E87.6 - HYPOKALEMIA (4) On Coumadin for atrial fibrillation Current Visit: Yes Status: Chronic Code(s): I48.91 - UNSPECIFIED ATRIAL FIBRILLATION; Z79.01 - RESIDENTIAL SUPPORT SPECIALIST (CURRENT) USE OF ANTICOAGULANTS (5) HFrEF (heart failure with reduced ejection fraction) Current Visit: Yes Status: Chronic Code(s): I50.20 - UNSPECIFIED SYSTOLIC (CONGESTIVE) HEART FAILURE (6) Elevated brain natriuretic peptide (BNP) level Current Visit: Yes Status: Acute Code(s): R79.89 - OTHER SPECIFIED ABNORMAL FINDINGS OF BLOOD CHEMISTRY (7) Chronic kidney disease, stage 3 Current Visit: No Status: Chronic Code(s): N18.3 - CHRONIC KIDNEY DISEASE, STAGE 3 (MODERATE) * DO NOT USE * Telemedicine Encounter - Telemedicine Encounter Telemedicine Encounter: The entirety of this encounter was performed via Telemedicine" - Discharge Disposition: DC TO [facility] Condition: Stable Prescriptions: New Bumetanide 1 mg [Bumex 1 mg] 1 mg IV Q12H Warfarin Sodium 1 mg [Jantoven] 2 mg PO COU tablet Piperacillin/Tazobactam [Piperacillin/Tazobactam 2.25 GM] 2.25 gm IV Q8HT Continue Atorvastatin Calcium 40 mg PO HS Aspirin 81 mg PO DAILY Amiodarone HCl 100 mg PO DAILY Carvedilol [Coreg] 3.125 mg PO BID Linagliptin [Tradjenta] 5 mg PO DAILY Empagliflozin [Jardiance] 25 mg PO DAILY Allopurinol 300 mg [Zyloprim 300 mg] 300 mg PO HS Docusate Sodium 100 mg [Docusate Sodium 100 MG] 100 mg PO HS Cholecalciferol (Vitamin D3) [Vitamin D] 25 mcg PO DAILY Levothyroxine Sodium 100 Mcg [Synthroid 100 Mcg] 100 mcg PO DAILY Discontinued Warfarin Sodium See Rx Instructions .ROUTE .COMPLEX Furosemide 40 mg [Lasix 40 MG] 60 mg pe PO BID Follow up with: TANISHA CONTRERAS MD [Primary Care Provider] -
== END 2023-01-27 13:59 | disposition home or self-care (01) ==
LOC: ED 09:29 → MED SURG 12:46
PROVIDERS: ADMIT Internal Medicine; ATTEND Internal Medicine
DX: L03.116 Cellulitis of left lower limb (principal); E87.20 Acidosis, unspecified; E87.6 Hypokalemia; I48.91 Unspecified atrial fibrillation; I50.20 Unspecified systolic (congestive) heart failure; E11.22 Type 2 diabetes mellitus with diabetic chronic kidney disease; N18.30 Chronic kidney disease, stage 3 unspecified; R79.89 Other specified abnormal findings of blood chemistry; R60.0 Localized edema; E78.5 Hyperlipidemia, unspecified; E87.70 Fluid overload, unspecified; R78.81 Bacteremia; R06.00 Dyspnea, unspecified; M10.9 Gout, unspecified; Z79.01 Long term (current) use of anticoagulants; Z79.899 Other long term (current) drug therapy; Z20.828 Contact with and (suspected) exposure to other viral communicable diseases
CPT/HCPCS: 29580; 36000; 36415; 71045; 73630; 80053; 82947; 83605; 83880; 84145; 85025; 85027; 85610; 85652; 86140; 87040; 87070; 87077; 87186; 93268; 93926; 96365; 96374; 96375; 97165; 99222; 99285; G0378; Q3014; J0696; J2270; J2405; J2543; A9270-GY